=== PATIENT | male | born 1945 | race Caucasian/White ===

== ENCOUNTER → 2016-07-02 | Outpatient (CLI) | payer MEDICARE ==
[2016-06-29 08:24] VITALS: BP 139/73
[~2016-07-02] MED LIST: ALBU0.63 NEB; ALBU18HF IH; ALBU2.5V5 NEB; ALBU8.5H3 IH; ASCO500C PO; CALC600T11 PO; CICL12.5 NS; CYCL10TA2 PO; DICL100T PO; DILT120C97 PO; DOCU-27 PO; FLUT1DIS3 IH; IPRA3AMP NEB; LEVO500T38 PO; LISI-334 PO; METH4TAB2 PO; NAPR220C4 PO; PRAV40TA2 PO; PRED-220 PO; PRED2.5T PO; SULF1TAB24 PO; TRAM-29 PO; ZOLP10TA PO; [UNRECOGNIZED DRUG - CODE] PO
--- NOTE | 2016-07-02 15:35 | RAD ---
Indication open wound. The patient has a new open wound on the medial aspect of the left upper tibia, below the knee. The patient reports prior infection associated with the bones of the left leg. Note is made of a bone scan 05/18/2016 and the accompanying report. The open wound was identified and cleansed. A small feeding tube was introduced into the wound and the wound was probed. Contrast was injected. Imaging was obtained in 2 planes. 3 Cine loops were generated. No long fistulous tunnel or tract is seen. Beyond the wound pocket visible to the platinum eye there is no longer tract seen. No communication with the joint is seen. Fluoroscopy time associated with the examination was 0.7 minutes. IMPRESSION: Open wound anterior proximal tibia. No long tract or communication with the joint seen
== END | disposition home or self-care (01) ==
LOC: RAD 13:20
PROVIDERS: ATTEND Preventive Medicine Undersea and Hyperbaric Medicine
DX: S81.002A Unspecified open wound, left knee, initial encounter (principal); X58.XXXA Exposure to other specified factors, initial encounter; Y93.89 Activity, other specified; Y92.89 Other specified places as the place of occurrence of the external cause; Y99.8 Other external cause status
CPT/HCPCS: 76080

== ENCOUNTER 2017-03-12 10:03 | Inpatient (IN) | payer MEDICARE ==
[~2017-03-12] VITALS: Ht 175.3 cm; Wt 80.0 kg
[~2017-03-12 10:03] MED LIST changes: -ALBU8.5H3 IH; +ALBU8.5H8 IH; -CALC600T11 PO; +CALC600T23 PO; -CICL12.5 NS; +CICL12.52 NS; +CYCL-331 PO; -CYCL10TA2 PO; +DILT120C80 PO; -DILT120C97 PO; +DOCU-109 PO; -DOCU-27 PO; -LEVO500T38 PO; +LEVO500T59 PO; -TRAM-29 PO; +TRAM-48 PO
[2017-03-12 10:15] VITALS: BP 181/83
[2017-03-12] MEDS ORDERED: methylPREDNISolone SOD SUCC PF 125 MG/2 ML VIAL. IV SCH ×2 (10:15→10:30)
[2017-03-12 10:28] VITALS: BP 181/83
[2017-03-12 10:40] LABS: BASO # 0.1 x10^3/uL (0.0-0.2); BASO % 1 % (0-3); EOS # 0.1 x10^3/uL (0.0-0.7); EOS % 2 % (0-3); HEMATOCRIT 38.6 % (39.0-53.0); HEMOGLOBIN 13.2 g/dL (13.0-17.5); LYMPH # 0.3 x10^3/uL (1.0-4.8); LYMPH % 4 % (24-48); MEAN CORPUSCULAR HEMOGLOBIN 31 pg (25-35); MEAN CORPUSCULAR HGB CONC 34 g/dL (31-37); MEAN CORPUSCULAR VOLUME 90 fL (79-100); MONO # 0.9 x10^3/uL (0.0-1.1); MONO % 12 % (0-9); NEUT # 5.9 x10^3uL (1.8-7.7); NEUT % 81 % (31-73); PLATELET COUNT 326 x10^3/uL (140-400); RED CELL DISTRIBUTION WIDTH 15.2 % (11.5-14.5); WHITE BLOOD COUNT 7.3 x10^3/uL (4.0-11.0)
[2017-03-12 10:52] LABS: ALBUMIN/GLOBULIN RATIO 1.1 (1.0-1.7); CALCIUM 9.3 mg/dL (8.5-10.1); CREATININE 1.3 mg/dL (0.7-1.3); GFR 54.4; POTASSIUM 4.1 mmol/L (3.5-5.1); TOTAL BILIRUBIN 0.5 mg/dL (0.2-1.0); TOTAL PROTEIN 7.7 g/dL (6.4-8.2)
[2017-03-12 11:09] LABS: INFLUENZA A PATIENT NEGATIVE (NEGATIVE)
[2017-03-12 11:10] LABS: INFLUENZA B PATIENT NEGATIVE (NEGATIVE)
--- NOTE | 2017-03-12 11:24 | RAD ---
Chest, 2 views, 03/12/2017: History: Cough, congestion, shortness of breath Comparison is made to a study from 05/16/2016. The heart size is normal. There is calcific plaquing and tortuosity of the thoracic aorta. There is flattening of the hemidiaphragms compatible with hyperexpansion due to COPD. There are scattered parenchymal scars. No acute infiltrate is seen. There is no evidence of pleural fluid. Moderate spurring is present in the spine. IMPRESSION: 1. Emphysema with parenchymal scarring. 2. No acute abnormality is detected.
[2017-03-12 11:34] LABS: BGAS PH 7.46 (7.35-7.46)
[2017-03-12] MEDS ORDERED: IPRATRPIUM/ALBUTEROL 0.5/2.5MG 3 ML NEBU. NEB SCH (12:00)
[2017-03-12] MEDS: IPRATRPIUM/ALBUTEROL 0.5/2.5MG 3 ML NEBU. NEB SCH ×5 (13:00→21:29)
[2017-03-12] MEDS ORDERED: ALBUTEROL SULFATE 8GM INHALER. IH SCH (13:00)
[2017-03-12 14:53] VITALS: BP 163/79
[2017-03-12] MEDS: methylPREDNISolone SOD SUCC PF 40 MG/ML VIAL. IV SCH ×2 (16:38→21:05)
[2017-03-12 20:28] VITALS: BP 186/88
[2017-03-12] MEDS ORDERED: DICLOFENAC SODIUM 75 MG TABLET.DR PO SCH (21:00)
[2017-03-12] MEDS: LACTOBACILLUS RHAMNOSUS GG 1 CAPSULE. PO SCH (21:01)
[2017-03-12] MEDS: PRAVASTATIN 20 MG TABLET. PO SCH (21:01)
[2017-03-12] MEDS: DOXYCYCLINE HYCLATE 100 MG TABLET PO SCH (21:01)
[2017-03-12] MEDS: IBUPROFEN 600 MG TABLET. PO SCH (21:03)
[2017-03-12] MEDS: DICLOFENAC SODIUM 75 MG TABLET.DR PO SCH (21:04)
[2017-03-12] MEDS: PRENATAL MULTIVITAMIN TABLET. PO SCH (21:04)
--- NOTE | 2017-03-13 01:47 | HP ---
ADMIT DATE: 03/12/2017 HISTORY OF PRESENT ILLNESS: A 72-year-old male. The patient direct admit today with increased shortness of breath over the last 2-3 days, increasingly difficulty breathing, having cold chills ____ as well as a fever. The patient basically is septic. He denies chest pain, but does have marked shortness of breath. The patient was admitted to the hospital for further evaluation and treatment. PAST MEDICAL HISTORY: Coronary artery disease, hypercholesterolemia, hypertension, COPD, bronchitis, pneumonia. He has had gastroesophageal reflux, osteoarthritis, Orthopedic Surgery ____. SOCIAL HISTORY: The patient does smoke. He has been encouraged to stop smoking numerous times and has received counseling there. FAMILY HISTORY: Positive for cardiovascular disease. ALLERGIES: TO PENICILLIN. HOME MEDICATIONS: Include that of ProAir inhaler, vitamin C, calcium carbonate, Voltaren XR, Tiazac, DuoNeb treatments 4 times a day, lisinopril 20 mg a day, pravastatin 40 mg a day. REVIEW OF SYSTEMS: The patient denies any headaches, ____ blurred vision or double vision. Does have shortness of breath and does have coughing, wheezing as well as fever and chills. PHYSICAL EXAMINATION: GENERAL: This is a pleasant white male, moderate amount of distress. VITAL SIGNS: Blood pressure 163/80, respiratory rate 20, pulse 104, temperature 101 degrees, oxygen saturation fairly at 90% on room air. The patient otherwise has an ill-appearing white male in no apparent distress. HEENT: The patient's head was atraumatic, normocephalic. Eyes: PERRLA without jaundice. Mouth and throat were normal. NECK: Supple, without JVD, carotid bruits. No thyromegaly. LUNGS: Diminished throughout, poor movement of air with expiratory and inspiratory wheezes and just decreased breath sounds throughout completely. CARDIOVASCULAR: Tachycardic. ABDOMEN: Protuberant, soft, nontender, no rebound or guarding. Positive bowel sounds, no hepatosplenomegaly noted. EXTREMITIES: No clubbing, cyanosis, or edema. NEUROLOGIC: The patient was alert and oriented x 3. LABORATORY DATA: CBC basically stable. Chemistries all within normal range. BUN and creatinine 15 and 1.3. Blood gas 7.46, pO2 was low at 63 with a pCO2 of 37. The patient's influenza screen was negative. IMPRESSION: Acute exacerbation of chronic obstructive pulmonary disease, acute respiratory failure, sepsis, and emphysema. PLAN: The patient will be placed on IV antibiotic therapy, aggressive pulmonary toilet, steroids, and make further assessment on those instances as indicated. FRANCISCO FIELDS MD DR: MADYSON/leno JOB#: [id number] / [id number]
[2017-03-13] MEDS ORDERED: DICL75TA PO (02:17)
[2017-03-13] MEDS: IPRATRPIUM/ALBUTEROL 0.5/2.5MG 3 ML NEBU. NEB SCH ×4 (06:00→20:21)
[2017-03-13] MEDS: methylPREDNISolone SOD SUCC PF 40 MG/ML VIAL. IV SCH ×3 (06:01→21:32)
[2017-03-13 06:32] LABS: BASO % 1 % (0-3); EOS % 0 % (0-3); HEMATOCRIT 40.5 % (39.0-53.0); HEMOGLOBIN 13.6 g/dL (13.0-17.5); LYMPH # 0.3 x10^3/uL (1.0-4.8); LYMPH % 8 % (24-48); MEAN CORPUSCULAR HEMOGLOBIN 31 pg (25-35); MEAN CORPUSCULAR HGB CONC 34 g/dL (31-37); MEAN CORPUSCULAR VOLUME 91 fL (79-100); MONO # 0.1 x10^3/uL (0.0-1.1); MONO % 4 % (0-9); NEUT # 3.1 x10^3uL (1.8-7.7); NEUT % 88 % (31-73); PLATELET COUNT 299 x10^3/uL (140-400); RED BLOOD COUNT 4.46 x10^6/uL (4.30-5.70); RED CELL DISTRIBUTION WIDTH 15.3 % (11.5-14.5); WHITE BLOOD COUNT 3.6 x10^3/uL (4.0-11.0)
[2017-03-13 06:41] LABS: CALCIUM 9.3 mg/dL (8.5-10.1); CREATININE 1.2 mg/dL (0.7-1.3); GFR 59.7; POTASSIUM 4.6 mmol/L (3.5-5.1)
[2017-03-13 07:55] VITALS: BP 186/86
[2017-03-13] MEDS: ASPIRIN 325 MG TABLET PO SCH (08:48)
[2017-03-13] MEDS: LACTOBACILLUS RHAMNOSUS GG 1 CAPSULE. PO SCH ×2 (08:49→21:32)
[2017-03-13] MEDS: PRENATAL MULTIVITAMIN TABLET. PO SCH ×2 (08:50→21:31)
[2017-03-13] MEDS: DOXYCYCLINE HYCLATE 100 MG TABLET PO SCH ×2 (08:50→21:31)
[2017-03-13] MEDS: LISINOPRIL 20 MG TABLET PO SCH (08:51)
[2017-03-13] MEDS: DICLOFENAC SODIUM 75 MG TABLET.DR PO SCH ×2 (08:51→21:38)
[2017-03-13] MEDS: IBUPROFEN 600 MG TABLET. PO SCH ×2 (08:52→21:32)
[2017-03-13] MEDS ORDERED: predniSONE 5 MG TABLET PO SCH (09:00)
[2017-03-13 11:17] VITALS: BP 140/72
[2017-03-13 15:35] VITALS: BP 122/66
[2017-03-13 19:55] VITALS: BP 137/67
[2017-03-13] MEDS: PRAVASTATIN 20 MG TABLET. PO SCH (21:30)
[2017-03-13 23:44] VITALS: BP 145/67
[2017-03-14 05:52] VITALS: BP 147/70
[2017-03-14] MEDS: IPRATRPIUM/ALBUTEROL 0.5/2.5MG 3 ML NEBU. NEB SCH ×2 (05:52→09:48)
[2017-03-14] MEDS: methylPREDNISolone SOD SUCC PF 40 MG/ML VIAL. IV SCH (06:03)
[2017-03-14] MEDS: DICLOFENAC SODIUM 75 MG TABLET.DR PO SCH (09:30)
[2017-03-14] MEDS: DOXYCYCLINE HYCLATE 100 MG TABLET PO SCH (09:30)
[2017-03-14] MEDS: ASPIRIN 325 MG TABLET PO SCH (09:30)
[2017-03-14] MEDS: PRENATAL MULTIVITAMIN TABLET. PO SCH (09:30)
[2017-03-14] MEDS: LACTOBACILLUS RHAMNOSUS GG 1 CAPSULE. PO SCH (09:30)
[2017-03-14] MEDS: IBUPROFEN 600 MG TABLET. PO SCH (09:31)
[2017-03-14] MEDS: LISINOPRIL 20 MG TABLET PO SCH (09:31)
[2017-03-14 11:17] VITALS: BP 174/75
[2017-03-14] MEDS ORDERED: PRED-220 PO (12:00)
[2017-03-14] MEDS ORDERED: DOXY100T PO (12:00)
[2017-03-14] MEDS ORDERED: IPRA3AMP NEB (12:00)
--- NOTE | 2017-03-15 01:34 | DS ---
DATE OF DISCHARGE: 03/14/2017 HOSPITAL COURSE: A 72-year-old gentleman admitted with acute respiratory failure. The patient was in dire needs of acute respiratory effect when his oxygen saturations were dropping down into the 80s on room air. He was using accessory muscles ____ temperature up to 101.1. Respiratory rates were also elevated to 24, pulse in the 100s. The patient made good progress with IV antibiotic therapy and ____ were not conclusive, but there is no doubt he had some type of a respiratory infection as well as acute exacerbation of COPD, acute respiratory failure. In any case, the patient made good progress during the rest of his hospitalization. He was discharged home and then will be followed up as an outpatient. See MRAD, decreased activity, wear oxygen as an outpatient. His oxygen saturation dropped into the low 80s with a 6-minute walk with exertion. FRANCISCO FIELDS MD DR: MADYSON/leno JOB#: [id number] / [id number]
== END 2017-03-14 13:24 | disposition home or self-care (01) | DRG 871 ==
LOC: 1 SOUTH 10:03
PROVIDERS: ADMIT Family Medicine; ATTEND Family Medicine
DX: A41.9 Sepsis, unspecified organism (principal); J96.00 Acute respiratory failure, unspecified whether with hypoxia or hypercapnia; J44.1 Chronic obstructive pulmonary disease with (acute) exacerbation; E78.00 Pure hypercholesterolemia, unspecified; F17.200 Nicotine dependence, unspecified, uncomplicated; I10 Essential (primary) hypertension; I25.10 Atherosclerotic heart disease of native coronary artery without angina pectoris; M19.90 Unspecified osteoarthritis, unspecified site; J98.8 Other specified respiratory disorders; K21.9 Gastro-esophageal reflux disease without esophagitis; Z82.49 Family history of ischemic heart disease and other diseases of the circulatory system; Z87.01 Personal history of pneumonia (recurrent); Z88.0 Allergy status to penicillin
CPT/HCPCS: 36415; 36600; 71020; 80048; 80053; 82803; 85025; 87070; 87205; 87804; 94620; 94640; 94760; 99406; J2920; J7620

== ENCOUNTER 2018-05-25 13:25 | Inpatient (IN) | payer MEDICARE ==
[~2018-05-25] VITALS: Ht 177.8 cm; Wt 87.7 kg
[~2018-05-25 13:25] MED LIST changes: -ALBU18HF IH; +ALBU2.5V8 IH; -ALBU8.5H8 IH; +DICL75TA PO; -DILT120C80 PO; +DILT120C85 PO; +DOXY100T PO; -IPRA3AMP NEB; +IPRA3AMP29 NEB
[2018-05-25 14:21] VITALS: BP 113/64
[2018-05-25] MEDS ORDERED: ONDANSETRON PF 4 MG/2 ML VIAL. IV PRN (14:45)
[2018-05-25 14:59] LABS: BASO # 0.1 x10^3/uL (0.0-0.2); BASO % 1 % (0-3); EOS # 0.1 x10^3/uL (0.0-0.7); EOS % 1 % (0-3); HEMATOCRIT 35.2 % (39.0-53.0); HEMOGLOBIN 11.7 g/dL (13.0-17.5); LYMPH # 0.6 x10^3/uL (1.0-4.8); LYMPH % 5 % (24-48); MEAN CORPUSCULAR HEMOGLOBIN 30 pg (25-35); MEAN CORPUSCULAR HGB CONC 33 g/dL (31-37); MEAN CORPUSCULAR VOLUME 90 fL (79-100); MONO # 0.4 x10^3/uL (0.0-1.1); MONO % 3 % (0-9); NEUT # 11.8 x10^3uL (1.8-7.7); NEUT % 91 % (31-73); PLATELET COUNT 425 x10^3/uL (140-400); RED BLOOD COUNT 3.92 x10^6/uL (4.30-5.70); RED CELL DISTRIBUTION WIDTH 16.6 % (11.5-14.5); WHITE BLOOD COUNT 12.9 x10^3/uL (4.0-11.0)
[2018-05-25] MEDS: NICOTINE 21MG PATCH. TD SCH (15:00)
[2018-05-25 15:07] LABS: ALBUMIN 3.6 g/dL (3.4-5.0); ALBUMIN/GLOBULIN RATIO 1.3 (1.0-1.7); CALCIUM 9.6 mg/dL (8.5-10.1); CREATININE 1.2 mg/dL (0.7-1.3); GFR 59.5; POTASSIUM 4.6 mmol/L (3.5-5.1); TOTAL BILIRUBIN 0.5 mg/dL (0.2-1.0); TOTAL PROTEIN 6.4 g/dL (6.4-8.2)
[2018-05-25] MEDS ORDERED: VANCOMYCIN PER PHARMACY MC PRN (17:15)
[2018-05-25] MEDS ORDERED: IOHEXOL 350 MG/ML 100 ML VIAL. IV ONE (17:45)
[2018-05-25] MEDS ORDERED: VANCOMYCIN 2 GM in IV NORMAL SALINE 500ML 500 ML IV ONE (18:00)
[2018-05-25 19:40] VITALS: BP 126/65
[2018-05-25] MEDS ORDERED: IPRATRPIUM/ALBUTEROL 0.5/2.5MG 3 ML NEBU. NEB SCH ×2 (20:00→21:00)
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
[2018-05-25] MEDS ORDERED: IPRATRPIUM/ALBUTEROL 0.5/2.5MG 3 ML NEBU. ONE (20:37)
[2018-05-25] MEDS ORDERED: DOCUSATE SODIUM 100 MG CAPSULE PO PRN (20:45)
[2018-05-25] MEDS ORDERED: ALBUTEROL SULFATE 2.5 MG/3 ML NEBU. IH SCH (21:00)
[2018-05-25] MEDS: IPRATRPIUM/ALBUTEROL 0.5/2.5MG 3 ML NEBU. NEB SCH (21:00)
[2018-05-25] MEDS: LACTOBACILLUS RHAMNOSUS GG 1 CAPSULE. PO SCH (21:39)
[2018-05-25] MEDS: DICLOFENAC SODIUM 25 MG TABLET.DR PO SCH (21:40)
[2018-05-26] VITALS (7 sets, daily range): BP systolic 113–155; BP diastolic 62–80
[2018-05-26] MEDS: IPRATRPIUM/ALBUTEROL 0.5/2.5MG 3 ML NEBU. NEB SCH ×3 (05:01→20:37)
[2018-05-26] MEDS: VANCOMYCIN 1.25 GM in IV NORMAL SALINE 250ML 250 ML IV SCH ×2 (05:06→17:31)
[2018-05-26 06:43] LABS: BASO # 0.1 x10^3/uL (0.0-0.2); BASO % 1 % (0-3); EOS # 0.3 x10^3/uL (0.0-0.7); EOS % 4 % (0-3); HEMATOCRIT 34.9 % (39.0-53.0); HEMOGLOBIN 11.5 g/dL (13.0-17.5); LYMPH # 0.9 x10^3/uL (1.0-4.8); LYMPH % 12 % (24-48); MEAN CORPUSCULAR HEMOGLOBIN 30 pg (25-35); MEAN CORPUSCULAR HGB CONC 33 g/dL (31-37); MEAN CORPUSCULAR VOLUME 91 fL (79-100); MONO # 0.6 x10^3/uL (0.0-1.1); MONO % 8 % (0-9); NEUT # 5.8 x10^3uL (1.8-7.7); NEUT % 76 % (31-73); PLATELET COUNT 385 x10^3/uL (140-400); RED BLOOD COUNT 3.86 x10^6/uL (4.30-5.70); RED CELL DISTRIBUTION WIDTH 16.9 % (11.5-14.5); WHITE BLOOD COUNT 7.7 x10^3/uL (4.0-11.0)
[2018-05-26 06:52] LABS: CALCIUM 9.2 mg/dL (8.5-10.1); CREATININE 1.1 mg/dL (0.7-1.3); GFR 65.8; POTASSIUM 3.7 mmol/L (3.5-5.1)
[2018-05-26] MEDS: LACTOBACILLUS RHAMNOSUS GG 1 CAPSULE. PO SCH ×2 (07:45→21:09)
[2018-05-26] MEDS: IBUPROFEN 600 MG TABLET. PO PRN ×2 (07:45→21:09)
[2018-05-26] MEDS: CALCIUM CARB/VIT D3 500/200 TABLET PO SCH (07:45)
[2018-05-26] MEDS: predniSONE 10 MG TABLET PO SCH (07:45)
[2018-05-26] MEDS: LISINOPRIL 20 MG TABLET PO SCH (07:46)
[2018-05-26] MEDS: DICLOFENAC SODIUM 25 MG TABLET.DR PO SCH ×2 (07:50→21:10)
[2018-05-26] MEDS: NICOTINE 21MG PATCH. TD SCH (07:50)
[2018-05-26] MEDS ORDERED: PRAVASTATIN 20 MG TABLET. PO SCH (09:00)
[2018-05-26] MEDS ORDERED: CALCIUM CARBONATE 500 MG TABLET PO SCH (09:00)
[2018-05-26] MEDS ORDERED: IPRATRPIUM/ALBUTEROL 0.5/2.5MG 3 ML NEBU. NEB SCH (11:30)
--- NOTE | 2018-05-26 15:41 | RAD ---
EXAM: Limited bone scintigraphy. HISTORY: Left leg pain. Nonhealing wound along left knee. COMPARISON: 05/25/2018. FINDINGS: 25 mCi technetium 99m MDP was administered intravenously. Scintigraphic images of both knees were obtained after a delay in multiple projections. Increased uptake traverses the left proximal tibial metaphysis in an oblique linear fashion, corresponding with a chronic fracture line noted on prior studies. Uptake along the medial compartment of the left kidney corresponds with osteoarthritis. Diffuse uptake throughout the right knee joint line is consistent with advanced osteoarthritis. IMPRESSION: 1. Uptake traversing the left proximal tibial metaphysis suggests incomplete healing or a developing stress lesion at the site of the previous fracture. 2. Findings consistent with severe knee osteoarthritis on the right greater than left. Electronically signed by: Preet Miles MD (05/26/2018 3:38 PM) [id number]
[2018-05-26] MEDS ORDERED: ASCORBIC ACID 500 MG TABLET PO SCH (21:00)
--- NOTE | 2018-05-26 23:54 | PN ---
DATE: SUBJECTIVE: A 73-year-old male in with cellulitis to his left knee and left lower leg, open wound there, which he has had for some time; however, chemistries came back and showed an elevated lactate going up from 2.6 up to 3.5. With that increased, the patient will continue on IV antibiotic therapy and we will get a bone scan of that lower left leg, as he has had chronic infection in there for years, but in any case, he is being packed here. We will continue to be monitored, says he feels somewhat better. OBJECTIVE: VITAL SIGNS: Blood pressure 140/70, respiratory rate 20, pulse 73, afebrile. GENERAL: The patient is alert and oriented x 3. Speech is fluent and appropriate. Cranial nerves 2-12 grossly intact. LUNGS: Diminished throughout, but basically clear. CARDIOVASCULAR: Regular sinus rhythm. ABDOMEN: Soft, nontender. EXTREMITIES: Left lower leg less swollen, less inflammation, open wound approximately 2 cm x 0.8 cm over the proximal tibia. Open wound needing to be packed with iodoform and Betadine. We will continue on IV antibiotic therapy and will await results of the bone scan to determine further therapy on this individual. FRANCISCO FIELDS MD DR: MADYSON/leno JOB#: [id number] / [id number]
[2018-05-27] MEDS: IPRATRPIUM/ALBUTEROL 0.5/2.5MG 3 ML NEBU. NEB SCH ×2 (05:00→09:43)
[2018-05-27 05:15] VITALS: BP 116/63
[2018-05-27 06:31] LABS: BASO # 0.1 x10^3/uL (0.0-0.2); BASO % 1 % (0-3); EOS # 0.3 x10^3/uL (0.0-0.7); EOS % 4 % (0-3); HEMATOCRIT 34.1 % (39.0-53.0); HEMOGLOBIN 11.4 g/dL (13.0-17.5); LYMPH # 0.8 x10^3/uL (1.0-4.8); LYMPH % 11 % (24-48); MEAN CORPUSCULAR HEMOGLOBIN 30 pg (25-35); MEAN CORPUSCULAR HGB CONC 34 g/dL (31-37); MEAN CORPUSCULAR VOLUME 90 fL (79-100); MONO # 0.7 x10^3/uL (0.0-1.1); MONO % 10 % (0-9); NEUT # 5.5 x10^3uL (1.8-7.7); NEUT % 74 % (31-73); PLATELET COUNT 364 x10^3/uL (140-400); RED BLOOD COUNT 3.79 x10^6/uL (4.30-5.70); RED CELL DISTRIBUTION WIDTH 16.3 % (11.5-14.5); WHITE BLOOD COUNT 7.5 x10^3/uL (4.0-11.0)
[2018-05-27 06:40] LABS: ALBUMIN 3.2 g/dL (3.4-5.0); ALBUMIN/GLOBULIN RATIO 1.2 (1.0-1.7); CREATININE 1.1 mg/dL (0.7-1.3); GFR 65.8; POTASSIUM 3.7 mmol/L (3.5-5.1); TOTAL BILIRUBIN 0.6 mg/dL (0.2-1.0); TOTAL PROTEIN 5.9 g/dL (6.4-8.2)
[2018-05-27] MEDS: VANCOMYCIN 1.25 GM in IV NORMAL SALINE 250ML 250 ML IV SCH (07:06)
[2018-05-27] MEDS: predniSONE 10 MG TABLET PO SCH (08:26)
[2018-05-27] MEDS: LACTOBACILLUS RHAMNOSUS GG 1 CAPSULE. PO SCH (08:26)
[2018-05-27] MEDS: CALCIUM CARB/VIT D3 500/200 TABLET PO SCH (08:27)
[2018-05-27] MEDS: LISINOPRIL 20 MG TABLET PO SCH (08:27)
[2018-05-27] MEDS: NICOTINE 21MG PATCH. TD SCH (08:27)
[2018-05-27] MEDS: DICLOFENAC SODIUM 25 MG TABLET.DR PO SCH (08:30)
[2018-05-27 09:14] LABS: VANC TR 15.8 mcg/mL (10.0-20.0)
[2018-05-27 11:00] VITALS: BP 105/61
[2018-05-27] MEDS ORDERED: LEVO500T59 PO (11:02)
[2018-05-27] MEDS ORDERED: levoFLOXacin 750 MG TABLET PO SCH (21:00)
--- NOTE | 2018-06-02 11:32 | DS ---
DATE OF DISCHARGE: 05/27/2018 HOSPITAL COURSE: A 73-year-old gentleman. The patient came in with cellulitis to the left lower leg. The patient had it for some time, although there is more infection noted. Lactic acid was elevated. The patient has had multiple injuries to that left lower leg and this one area does seem to heal. He has been through multiple orthopedic physicians for evaluation of it as noted. The patient's lactic acid did go as high as 3.5, and the left knee wound grew out a composite of multiple organisms including Staph aureus, it was sensitive and Enterococcus faecalis. The patient made a good progress with the IV antibiotic therapy. He was placed on oral antibiotics. A bone scan was performed, and it demonstrated incomplete healing of a developing stress lesion at the site of the previous fracture consistent with severe left knee osteoarthritis. A CT scan of the lower extremity left showed no osteo, however, diffuse cellulitis without soft tissue abscess. In any case, the patient made good progress during the rest of his hospitalization. He was discharged to home. IMPRESSION: 1. Cellulitis to left lower leg, unresponsive to oral antibiotics as an outpatient. 2. Anemia of chronic disease. 3. Mild protein malnutrition. The patient will be discharged home and followed up as an outpatient. Continue oral antibiotics as indicated. He will be on a heart healthy diet, decreased activity, and follow up in 7-10 days for followup or sooner as needed. FRANCISCO FIELDS MD DR: MADYSON/leno JOB#: [id number] / [id number]
== END 2018-05-27 11:14 | disposition home or self-care (01) | DRG 603 ==
LOC: ICU 13:53
PROVIDERS: ADMIT Family Medicine; ATTEND Family Medicine
DX: L03.116 Cellulitis of left lower limb (principal); E44.1 Mild protein-calorie malnutrition; R65.10 Systemic inflammatory response syndrome (SIRS) of non-infectious origin without acute organ dysfunction; R79.89 Other specified abnormal findings of blood chemistry; I10 Essential (primary) hypertension; E78.5 Hyperlipidemia, unspecified; I87.2 Venous insufficiency (chronic) (peripheral); J44.9 Chronic obstructive pulmonary disease, unspecified; F17.210 Nicotine dependence, cigarettes, uncomplicated; Z88.0 Allergy status to penicillin; M17.12 Unilateral primary osteoarthritis, left knee; D63.8 Anemia in other chronic diseases classified elsewhere
CPT/HCPCS: 36415; 73701; 78300; 80048; 80053; 80202; 83605; 85025; 85651; 87040; 87070; 87186; 87641; 94640; A9503; J1956; J3370; J7040; J7050; J7512; J7620; Q9967

== ENCOUNTER 2018-06-26 12:23 | Inpatient (IN) | payer MEDICARE ==
[~2018-06-26] VITALS: Ht 177.8 cm; Wt 84.1 kg
--- NOTE | 2018-06-26 12:42 | PHYS DOC ---
Past History Past Medical History: Arthritis, COPD, High Cholesterol, Hypertension Past Surgical History: Other Alcohol Use: None Drug Use: Marijuana Adult General Chief Complaint Chief Complaint: SHORTNESS OF BREATH HPI HPI Patient is a 73-year-old male who presents with shortness of breath. This has been getting worse for the past 2 days. Patient has a history of COPD and this feels like a flareup of that. No fever. Cough has decreased during this time. Increased shortness of breath with exertion. No new leg swelling. No new orthopnea. No chest pain[] Review of Systems Review of Systems Constitutional: Denies fever or chills [] Eyes: Denies change in visual acuity, redness, or eye pain [] HENT: Denies nasal congestion or sore throat [] Respiratory: See history of present illness[] Cardiovascular: No chest pain or palpitations[] GI: Denies abdominal pain, nausea, vomiting, bloody stools or diarrhea [] : Denies dysuria or hematuria [] Musculoskeletal: Denies back pain or joint pain [] Integument: Denies rash or skin lesions [] Neurologic: Denies headache, focal weakness or sensory changes [] Endocrine: Denies polyuria or polydipsia [] All other systems were reviewed and found to be within normal limits, except as documented in this note. Allergies Allergies Allergies Coded Allergies Type Severity Reaction Last Updated Verified Penicillins Allergy Intermediate 04/08/16 Yes Physical Exam Physical Exam Constitutional: Well developed, well nourished, mild distress, pursed lip breathing, non-toxic appearance. [] HENT: Normocephalic, atraumatic, bilateral external ears normal, oropharynx moist, no oral exudates, nose normal. [] Eyes: PERRLA, EOMI, conjunctiva normal, no discharge. [] Neck: Normal range of motion, no tenderness, supple, no stridor. [] Cardiovascular:Heart rate regular rhythm, no murmur [] Lungs & Thorax: Bilateral breath sounds clear to auscultation [] Abdomen: Bowel sounds normal, soft, no tenderness, no masses, no pulsatile masses. [] Skin: Warm, dry, no erythema, no rash. [] Back: No tenderness, no CVA tenderness. [] Extremities: No tenderness, no cyanosis, no clubbing, ROM intact, no edema. [] Neurologic: Alert and oriented X 3, normal motor function, normal sensory function, no focal deficits noted. [] Psychologic: Affect normal, judgement normal, mood normal. [] EKG EKG EKG shows a sinus rhythm at 96 bpm, normal axis, QTC 433 ms, no ST elevations, interpreted by me at 1252[] Radiology/Procedures Radiology/Procedures AP chest. HISTORY: Short of breath, COPD. AP view was taken of the chest. There is marked arthritis in both shoulders. Heart is upper normal in size without heart failure. The aorta is tortuous. There is pleural thickening or a small effusion on the right. There is focal atelectasis or scarring along the left heart border. There are no other confluent infiltrates. IMPRESSION: 1. Scarring or atelectasis along the left heart border. 2. No other acute infiltrates. 3. Mild pleural thickening or small effusion on the right.[] Course & Med Decision Making Course & Med Decision Making Pertinent Labs and Imaging studies reviewed. (See chart for details) [] Dragon Disclaimer Dragon Disclaimer This electronic medical record was generated, in whole or in part, using a voice recognition dictation system. Departure Departure: Referrals: FRANCISCO FIELDS MD (PCP) JOSEF FUNG DO Jun 26, 2018 12:42
[2018-06-26] MEDS ORDERED: IPRATRPIUM/ALBUTEROL 0.5/2.5MG 3 ML NEBU. NEB ONE (12:45)
[2018-06-26 12:55] LABS: BASO % 1 % (0-3); EOS # 0.1 x10^3/uL (0.0-0.7); EOS % 2 % (0-3); HEMATOCRIT 36.4 % (39.0-53.0); HEMOGLOBIN 11.9 g/dL (13.0-17.5); LYMPH # 0.4 x10^3/uL (1.0-4.8); LYMPH % 7 % (24-48); MEAN CORPUSCULAR HEMOGLOBIN 29 pg (25-35); MEAN CORPUSCULAR HGB CONC 33 g/dL (31-37); MEAN CORPUSCULAR VOLUME 89 fL (79-100); MONO # 0.6 x10^3/uL (0.0-1.1); MONO % 8 % (0-9); NEUT # 5.6 x10^3uL (1.8-7.7); NEUT % 83 % (31-73); PLATELET COUNT 388 x10^3/uL (140-400); RED BLOOD COUNT 4.08 x10^6/uL (4.30-5.70); RED CELL DISTRIBUTION WIDTH 15.8 % (11.5-14.5); WHITE BLOOD COUNT 6.8 x10^3/uL (4.0-11.0)
[2018-06-26 13:13] LABS: ALBUMIN 3.8 g/dL (3.4-5.0); ALBUMIN/GLOBULIN RATIO 1.1 (1.0-1.7); CALCIUM 9.4 mg/dL (8.5-10.1); GFR 73.5; POTASSIUM 3.9 mmol/L (3.5-5.1); TOTAL BILIRUBIN 0.6 mg/dL (0.2-1.0); TOTAL PROTEIN 7.4 g/dL (6.4-8.2)
--- NOTE | 2018-06-26 13:27 | RAD ---
AP chest. HISTORY: Short of breath, COPD. AP view was taken of the chest. There is marked arthritis in both shoulders. Heart is upper normal in size without heart failure. The aorta is tortuous. There is pleural thickening or a small effusion on the right. There is focal atelectasis or scarring along the left heart border. There are no other confluent infiltrates. IMPRESSION: 1. Scarring or atelectasis along the left heart border. 2. No other acute infiltrates. 3. Mild pleural thickening or small effusion on the right. Electronically signed by: Roby Wright MD (06/26/2018 1:24 PM) [facility]
[2018-06-26] MEDS ORDERED: methylPREDNISolone SOD SUCC PF 125 MG/2 ML VIAL. IV ONE (13:30)
[2018-06-26] MEDS ORDERED: ALBUTEROL SULFATE 2.5 MG/3 ML NEBU. CONT NEB ONE (13:45)
[2018-06-26] MEDS ORDERED: ONDANSETRON PF 4 MG/2 ML VIAL. IV PRN (15:45)
[2018-06-26] MEDS ORDERED: ACETAMINOPHEN 325 MG TABLET PO PRN (15:45)
[2018-06-26] MEDS ORDERED: IPRATRPIUM/ALBUTEROL 0.5/2.5MG 3 ML NEBU. NEB SCH (16:00)
[2018-06-26] MEDS ORDERED: SMZ/TMP 800/160MG TABLET. PO ONE (16:00)
--- NOTE | 2018-06-26 16:25 | NUR ---
Admit to room 113 via cart accompanied by staff. Alert and oriented, vs stable, no c/o pain. Oriented to room and explained all procedures.
[2018-06-26 16:35] VITALS: BP 163/88
[2018-06-26] MEDS ORDERED: PRED-220 PO (18:04)
[2018-06-26 19:43] VITALS: BP 124/79
[2018-06-26] MEDS: predniSONE 10 MG TABLET PO SCH (20:28)
[2018-06-26] MEDS: ATORVASTATIN CALCIUM 10 MG TABLET. PO SCH (20:28)
[2018-06-26] MEDS: IPRATRPIUM/ALBUTEROL 0.5/2.5MG 3 ML NEBU. NEB SCH (20:44)
[2018-06-26] MEDS ORDERED: ALBUTEROL SULFATE 2.5 MG/3 ML NEBU. IH SCH (21:00)
[2018-06-26] MEDS ORDERED: MULT1TAB52 PO (21:45)
[2018-06-26] MEDS ORDERED: ASPI325T11 PO (21:45)
[2018-06-26] MEDS ORDERED: IBUP400T18 PO (21:45)
[2018-06-26] MEDS ORDERED: FLUT1DIS3 IH (21:45)
--- NOTE | 2018-06-26 21:45 | NUR ---
Patient concerned that not all of his home medication were not ordered. Current home medication list copied and placed on chart/updated in computer. Diclofenac held per Dr. Meléndez and Patient wonders why. Call to Dr. Meléndez's number placed several times with no answer. Patient aware.
[2018-06-26 22:27] VITALS: BP 112/74
[2018-06-27] MEDS: IPRATRPIUM/ALBUTEROL 0.5/2.5MG 3 ML NEBU. NEB SCH ×4 (04:54→20:34)
[2018-06-27 05:36] VITALS: BP 168/83
[2018-06-27] MEDS: predniSONE 10 MG TABLET PO SCH (09:10)
[2018-06-27] MEDS: LISINOPRIL 20 MG TABLET PO SCH (09:10)
[2018-06-27] MEDS: HYDROcodone/APAP 5/325MG 1 TAB TABLET PO PRN ×2 (10:35→18:35)
--- NOTE | 2018-06-27 11:08 | EKG ---
[address] [address] Test Date: 2018-06-26 Test Time: 12:52:53 Pat Name: PHILLIP THOMAS Department: Room: 113 A Gender: M Tool/Die Maker: : [id number] Requested By: JOSEF FUNG Order Number: [id number] Reading MD: Julio C Dickson Measurements Intervals [place] Rate: 96 P: 38 DE: 198 QRS: 52 QRSD: 110 T: 34 QT: 342 QTc: 433 Interpretive Statements SINUS RHYTHM Electronically Signed On 07-05-2018 12:40:13 CDT by Julio C Dickson
[2018-06-27 11:22] VITALS: BP 169/84
[2018-06-27] MEDS: methylPREDNISolone SOD SUCC PF 40 MG/ML VIAL. IV SCH ×2 (14:12→21:14)
[2018-06-27 15:59] VITALS: BP 153/81
[2018-06-27 19:35] VITALS: BP 142/72
[2018-06-27] MEDS: ATORVASTATIN CALCIUM 10 MG TABLET. PO SCH (21:14)
[2018-06-27] MEDS: LACTOBACILLUS RHAMNOSUS GG 1 CAPSULE. PO SCH (21:14)
--- NOTE | 2018-06-27 21:50 | PN ---
DATE: 06/27/2018 SUBJECTIVE: The patient with acute exacerbation of COPD with acute bronchitis, hypoxia. He is resting a little bit more comfortably today. The patient is breathing somewhat better. He has been given IV steroids and aggressive pulmonary toilet. OBJECTIVE: VITAL SIGNS: Blood pressure 169/80, respiratory rate 20, pulse 104, afebrile. LUNGS: The patient's lungs are diminished, poor movement of air, rhonchi noted throughout, but markedly improved from where they were yesterday. He is moving air much better. Oxygen saturation is 95% on 2. ABDOMEN: Soft and nontender. EXTREMITIES: No clubbing, cyanosis, or edema. NEUROLOGIC: Alert and oriented. PLAN: Continue with aggressive pulmonary situation and make further evaluation on him with steroids and aggressive pulmonary treatment. FRANCISCO FIELDS MD DR: MADYSON/leno JOB#: [id number] / [id number]
[2018-06-27] MEDS ORDERED: NICOTINE 21MG PATCH. TD PRN (22:00)
[2018-06-28 00:30] VITALS: BP 132/70
[2018-06-28] MEDS: HYDROcodone/APAP 5/325MG 1 TAB TABLET PO PRN ×4 (00:34→20:39)
[2018-06-28] MEDS: IPRATRPIUM/ALBUTEROL 0.5/2.5MG 3 ML NEBU. NEB SCH ×4 (04:55→20:42)
[2018-06-28 05:00] VITALS: BP 160/58
[2018-06-28] MEDS: LACTOBACILLUS RHAMNOSUS GG 1 CAPSULE. PO SCH ×2 (08:58→20:39)
[2018-06-28] MEDS: LISINOPRIL 20 MG TABLET PO SCH (08:59)
[2018-06-28] MEDS: methylPREDNISolone SOD SUCC PF 40 MG/ML VIAL. IV SCH ×2 (08:59→20:39)
[2018-06-28 10:41] VITALS: BP 132/69
--- NOTE | 2018-06-28 16:00 | PN ---
DATE: SUBJECTIVE: The patient with acute exacerbation of chronic obstructive pulmonary disease with respiratory failure, hypoxia. The patient has made some improvements as he is feeling somewhat better. Blood pressure 160/58, respiration 18, pulse 81, afebrile. He is still on 2 liters at 94%. Recall, he was down in the 80s when he first came in with any exertion and respiratory rate of 33. In any case, the patient is making fairly good progress. The patient's chest x-ray the other day demonstrated scarring and atelectasis. The patient be tapered down on Solu-Medrol and make further evaluation on him as indicated. IMPRESSION: Acute exacerbation of chronic obstructive pulmonary disease with hypoxia. PLAN: As above, continue taper down on Solu-Medrol and hopefully ready for discharge in the a.m. FRANCISCO FIELDS MD DR: MADYSON/leno JOB#: [id number] / [id number]
[2018-06-28 16:32] VITALS: BP 140/75
[2018-06-28 19:56] VITALS: BP 126/74
[2018-06-28] MEDS: ATORVASTATIN CALCIUM 10 MG TABLET. PO SCH (20:39)
[2018-06-28] MEDS ORDERED: DOCUSATE SODIUM 100 MG CAPSULE PO PRN (20:45)
[2018-06-28 23:00] VITALS: BP 143/76
[2018-06-29] MEDS: IPRATRPIUM/ALBUTEROL 0.5/2.5MG 3 ML NEBU. NEB SCH ×2 (05:31→09:46)
[2018-06-29 06:04] VITALS: BP 157/77
[2018-06-29] MEDS: HYDROcodone/APAP 5/325MG 1 TAB TABLET PO PRN (06:37)
[2018-06-29] MEDS: methylPREDNISolone SOD SUCC PF 40 MG/ML VIAL. IV SCH (08:24)
[2018-06-29] MEDS: LACTOBACILLUS RHAMNOSUS GG 1 CAPSULE. PO SCH (08:25)
[2018-06-29 08:26] VITALS: BP 157/77
[2018-06-29] MEDS: LISINOPRIL 20 MG TABLET PO SCH (08:26)
[2018-06-29] MEDS ORDERED: PRED-220 PO (08:57)
--- NOTE | 2018-06-29 09:12 | NUR ---
Wound Care Wound care consult for L knee wound. Pt is well known to WC team, he has chronic surgical wound to left knee from artificial bone implant. Cleansed area, packed with Aquacel Ag rope, covered with gauze and Kerlix and secured with Tubigrip. No other wounds noted on full skin inspection. WC will continue to follow for possible changes.
--- NOTE | 2018-06-29 10:45 | NUR ---
Discharge Note: PHILLIP GALO [address] Discharge instructions and discharge home medications reviewed with patient and son and a copy given. All questions have been answered and understanding verbalized. The following instructions and handouts were given: medications, follow up instructions, prescriptions and educational handouts given. Discontinued lines and drains: peripheral IV removed with no complications. Patient discharged to home with son via private vehicle.
--- NOTE | 2018-07-06 09:29 | DS ---
DATE OF DISCHARGE: 06/29/2018 HOSPITAL COURSE: For acute exacerbation of COPD. The patient was brought in. He has been using his nebulizer at home, got progressively worse and he used accessory muscles to breathe and could not make much movement at home. As a result of this, the patient was admitted to the hospital for further evaluation. He was placed on IV Solu-Medrol, aggressive pulmonary toilet with nebulizers every 6 hours and then the patient made excellent progress during the rest of his hospitalization. Chest x-ray was unremarkable. Labs except for some chronic anemia was basically unremarkable. The patient made good progress during the rest of his hospitalization and there were no complications. The patient was discharged home. See MRAD. He will be on a heart healthy diet. He has hypercholesterolemia. IMPRESSION: Acute exacerbation of chronic obstructive pulmonary disease with hypoxia, acute respiratory failure with hypoxemia, anemia of chronic disease. PLAN: The patient will be discharged home. See MRAD and follow up accordingly. FRANCISCO FIELDS MD DR: MADYSON/leno JOB#: [id number] / [id number]
--- NOTE | 2018-07-06 09:32 | HP ---
ADMIT DATE: 06/26/2018 HISTORY OF PRESENT ILLNESS: The patient admitted 06/26/2018 for shortness of breath. For the past 2 days, this young man had problems with coughing and shortness of breath with minimal exertion, unable to catch his air. He has tried outpatient therapy. He has his own nebulizer and unable to gain his air, As a result of this, the patient came into the Emergency Room. The patient was found to be in exacerbation of COPD and we admitted him to the hospital for further evaluation and treatment. The pulse was elevated to almost 100 and the patient required breathing treatments as he was using accessory muscles to breathe and having difficulty there. The patient was admitted for IV Solu-Medrol, aggressive pulmonary toilet monitoring obviously. PAST MEDICAL HISTORY: Coronary artery disease, hypercholesterolemia, hypertension, COPD, bronchitis, pneumonia, oxygen dependent; gastroesophageal reflux, dialysis at times, musculoskeletal disorder, arthritis, rheumatoid arthritis, osteoarthritis, orthopedic surgery of the left wrist, left leg. He has had multiple rods and screws placed, joint replacement, left hip and anemia. IMMUNIZATIONS: Tetanus and influenza, pneumococcal are up to date. FAMILY HISTORY: Mother had hepatitis B, father had heart failure and COPD and heart disease. ALLERGIES: PENICILLIN. MEDICATIONS: Reconciliation of meds was performed in the usual fashion and they are duly noted in the chart including his DuoNeb treatments, albuterol, pravastatin 40, diltiazem 300, lisinopril 20, calcium carbonate, fluticasone, prednisone, and vitamins. SOCIAL HISTORY: The patient used to be a smoker, had a previous history about 40 pack years, given that up fortuitously and he also uses some marijuana now and then to help him feel better. The patient otherwise denies any other abdominal pain. REVIEW OF SYSTEMS Denies headaches, visual changes, blurred vision, double vision. Denies abdominal pain. Does have shortness of breath. Denies chest pain. Denies melena, hematochezia, hematemesis and neurologically intact. PHYSICAL EXAMINATION: GENERAL: This is a very pleasant white male in moderate amount of distress using accessory muscles. VITAL SIGNS: Blood pressure is that of 130/70, respiratory rate 33, pulse 99, temperature ____ on 2 liters. He is using accessory muscles to breathe. HEENT: The patient's head was atraumatic, normocephalic. Eyes: PERRLA without jaundice. Mouth and throat were normal. NECK: Supple, without JVD, carotid bruits, or thyromegaly. LUNGS: Diminished, poor movement of air, using accessory muscles, inspiratory and expiratory wheezes and rhonchi. CARDIOVASCULAR: Regular sinus rhythm, except for tachy. ABDOMEN: Soft, nontender, no rebounding or guarding. Positive bowel sounds, no hepatosplenomegaly was noted. EXTREMITIES: Without clubbing, cyanosis, or edema. NEUROLOGIC: The patient was alert and oriented x 3. The patient will be admitted for further evaluation and treatment of his exacerbation of COPD and make further assessment as indicated for those results. The chest x-ray itself did not show anything in particular except for old scarring, but that is to be expected. IMPRESSION: Acute respiratory distress with hypoxia and acute exacerbation of chronic obstructive pulmonary disease with hypoxia, anemia of chronic disease. FRANCISCO FIELDS MD DR: MADYSON/leno JOB#: [id number] / [id number]
== END 2018-06-29 10:48 | disposition home or self-care (01) | DRG 190 ==
LOC: ER 12:23 → 1 SOUTH 16:03
PROVIDERS: ADMIT Family Medicine; ATTEND Family Medicine
DX: J44.1 Chronic obstructive pulmonary disease with (acute) exacerbation (principal); J96.91 Respiratory failure, unspecified with hypoxia; R65.10 Systemic inflammatory response syndrome (SIRS) of non-infectious origin without acute organ dysfunction; J44.0 Chronic obstructive pulmonary disease with (acute) lower respiratory infection; J20.9 Acute bronchitis, unspecified; M19.90 Unspecified osteoarthritis, unspecified site; E78.00 Pure hypercholesterolemia, unspecified; I10 Essential (primary) hypertension; Z88.0 Allergy status to penicillin; Z79.899 Other long term (current) drug therapy
CPT/HCPCS: 36415; 71045; 80053; 83880; 84484; 85025; 93005; 94640; 94760; 96374; J0696; J2920; J2930; J7512; J7613; J7620; 99285-25

== ENCOUNTER 2019-10-19 12:04 | Inpatient (IN) | payer MEDICARE ==
[~2019-10-19] VITALS: Ht 177.8 cm; Wt 82.3 kg
[~2019-10-19 12:04] MED LIST changes: +ASPI325T11 PO; -DILT120C85 PO; +DILT120C99 PO; +IBUP400T18 PO; +MULT-445 PO
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
[2019-10-19 12:37] LABS: BASO # 0.1 x10^3/uL (0.0-0.2); BASO % 1 % (0-3); EOS # 0.1 x10^3/uL (0.0-0.7); EOS % 1 % (0-3); HEMATOCRIT 37.4 % (39.0-53.0); HEMOGLOBIN 12.3 g/dL (13.0-17.5); LYMPH # 0.7 x10^3/uL (1.0-4.8); LYMPH % 6 % (24-48); MEAN CORPUSCULAR HEMOGLOBIN 30 pg (25-35); MEAN CORPUSCULAR HGB CONC 33 g/dL (31-37); MEAN CORPUSCULAR VOLUME 91 fL (79-100); MONO # 0.2 x10^3/uL (0.0-1.1); MONO % 2 % (0-9); NEUT # 10.3 x10^3uL (1.8-7.7); NEUT % 91 % (31-73); PLATELET COUNT 451 x10^3/uL (140-400); RED BLOOD COUNT 4.11 x10^6/uL (4.30-5.70); RED CELL DISTRIBUTION WIDTH 15.4 % (11.5-14.5); WHITE BLOOD COUNT 11.3 x10^3/uL (4.0-11.0)
[2019-10-19 12:51] LABS: ANION GAP 10 (6-14); BLOOD UREA NITROGEN 16 mg/dL (8-26); BUN/CREATININE RATIO 12 (6-20); CALCIUM 9.8 mg/dL (8.5-10.1); CARBON DIOXIDE 28 mmol/L (21-32); CHLORIDE 100 mmol/L (98-107); CREATININE 1.3 mg/dL (0.7-1.3); GFR 54.1; GLUCOSE 108 mg/dL (70-99); POTASSIUM 3.9 mmol/L (3.5-5.1); SODIUM 138 mmol/L (136-145)
[2019-10-19 12:57] LABS: ALBUMIN 4.1 g/dL (3.4-5.0); ALBUMIN/GLOBULIN RATIO 1.2 (1.0-1.7); ALK PHOS 109 U/L (46-116); ALT (SGPT) 32 U/L (16-63); AST (SGOT) 21 U/L (15-37); TOTAL BILIRUBIN 0.5 mg/dL (0.2-1.0); TOTAL PROTEIN 7.5 g/dL (6.4-8.2)
[2019-10-19 12:59] LABS: C REACTIVE PROTEIN < 0.5 mg/L (0-3.3)
[2019-10-19] MEDS ORDERED: ceFAZolin SODIUM 2 GM in IV DEXTROSE 5% 50 ML IV ONE (13:00)
--- NOTE | 2019-10-19 13:00 | RAD ---
Left tibia-fibula 2 views INDICATION: Left lower extremity infection, osteomyelitis COMPARISON: 05/26/2018 bone scan and 05/25/[address] FINDINGS: Proximal fibula and tibial fractures as well as a distal femoral fracture are again identified with surgical hardware fixation of the femoral and tibial fractures. The hardware appears intact and there is no periprosthetic lucency suggesting loosening. The fracture line through the proximal tibial metaphysis remains visible and appears irregular with marginal sclerosis. No new fracture or permeative osteolysis is evident. Soft tissues show similar fatty atrophy of the calf muscles. IMPRESSION: Delayed union of the proximal tibial metaphyseal fracture status post ORIF with medial and lateral plate fixation plates with screws. No permeative osteolytic lesions suspicious for osteomyelitis although that diagnosis is not necessarily excluded by radiographic appearance alone. Continued follow-up suggested. Electronically signed by: Jessica Tillman MD (10/19/2019 12:57 PM) [id number]
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
[2019-10-19 14:02] VITALS: BP 145/59
[2019-10-19] MEDS ORDERED: ALBU2.5V8 INH (16:04)
[2019-10-19] MEDS ORDERED: IBUP-571 PO (16:04)
[2019-10-19] MEDS ORDERED: DOCU100C28 PO (16:04)
[2019-10-19] MEDS ORDERED: CYCL-331 PO (16:04)
[2019-10-19] MEDS ORDERED: DIPH25TA26 PO (16:04)
[2019-10-19] MEDS ORDERED: IPRA3AMP29 NEB (16:04)
[2019-10-19 16:17] VITALS: BP 132/66
--- NOTE | 2019-10-19 16:30 | NUR ---
Wound Care Wound Type/Assessment: Patient has a chronic wound to the left knee, the wound was cleaned, measured, and assessed. patients wound has exposed bone and what looks like hardware exposed, the wound was repacked with iodoform gauze packing with a foam dressing over. the kristian-wound is reddened. the patient also has a small skin tear to the left lateral lower leg the area was cleaned, measured, pictured and redressed with Xeroform gauze with a foam dressing. Treatment Recommendations/Plan: Recommendations of the left knee- cleanse the wound then pack with iodoform gauze in the deeper areas and place iodoform gauze over the areas that have no depth then place gauze and tape or a foam dressing and change daily. Recommendation to the left lateral lower leg- cleanse the wound then place Xeroform gauze over with a foam dressing, change every 2-3 days. Notified RN about the POC and wound care will continue to f/u for changes.
[2019-10-19] MEDS ORDERED: ALBUTEROL SULFATE 2.5 MG/3 ML NEBU. ONE (17:17)
[2019-10-19] MEDS ORDERED: BUDESONIDE 0.5 MG/2 ML NEBU ONE (17:17)
[2019-10-19 19:01] VITALS: BP 124/73
[2019-10-19] MEDS ORDERED: IBUPROFEN 600 MG TABLET. PO PRN (19:45)
[2019-10-19] MEDS: ACETAMINOPHEN 325 MG TABLET PO PRN (20:39)
[2019-10-19] MEDS: ASCORBIC ACID 500 MG TABLET PO SCH (20:39)
[2019-10-19] MEDS: DICLOFENAC SODIUM 25 MG TABLET.DR PO SCH (20:40)
[2019-10-19] MEDS: BUDESONIDE 0.5 MG/2 ML NEBU NEB SCH (20:45)
[2019-10-19] MEDS: ALBUTEROL SULFATE 2.5 MG/3 ML NEBU. NEB SCH (20:45)
[2019-10-19] MEDS ORDERED: NON FORMULARY ITEM (Fluticasone/Salmeterol (Advair 250-50 Diskus) 1 PUFF) IH SCH (21:00)
[2019-10-19] MEDS ORDERED: predniSONE 10 MG TABLET PO SCH (21:00)
[2019-10-19 22:13] VITALS: BP 151/75
[2019-10-20] MEDS: ALBUTEROL SULFATE 2.5 MG/3 ML NEBU. NEB SCH ×4 (04:51→20:12)
[2019-10-20] MEDS: ACETAMINOPHEN 325 MG TABLET PO PRN ×2 (05:05→17:56)
[2019-10-20 05:55] VITALS: BP 159/66
[2019-10-20 06:54] LABS: BASO # 0.1 x10^3/uL (0.0-0.2); BASO % 1 % (0-3); EOS # 0.4 x10^3/uL (0.0-0.7); EOS % 5 % (0-3); HEMATOCRIT 33.3 % (39.0-53.0); HEMOGLOBIN 10.8 g/dL (13.0-17.5); LYMPH # 1.2 x10^3/uL (1.0-4.8); LYMPH % 16 % (24-48); MEAN CORPUSCULAR HEMOGLOBIN 30 pg (25-35); MEAN CORPUSCULAR HGB CONC 33 g/dL (31-37); MEAN CORPUSCULAR VOLUME 91 fL (79-100); MONO # 0.8 x10^3/uL (0.0-1.1); MONO % 10 % (0-9); NEUT # 5.3 x10^3uL (1.8-7.7); NEUT % 68 % (31-73); PLATELET COUNT 399 x10^3/uL (140-400); RED BLOOD COUNT 3.68 x10^6/uL (4.30-5.70); RED CELL DISTRIBUTION WIDTH 15.2 % (11.5-14.5); WHITE BLOOD COUNT 7.7 x10^3/uL (4.0-11.0)
[2019-10-20 06:57] LABS: CALCIUM 8.8 mg/dL (8.5-10.1); CREATININE 1.1 mg/dL (0.7-1.3); GFR 65.6; POTASSIUM 3.4 mmol/L (3.5-5.1)
[2019-10-20] MEDS: predniSONE 5 MG TABLET PO SCH (08:45)
[2019-10-20] MEDS: ASCORBIC ACID 500 MG TABLET PO SCH ×2 (08:45→20:34)
[2019-10-20] MEDS: ASPIRIN ENTERIC COATED 325 MG TABLET.DR. PO SCH (08:45)
[2019-10-20] MEDS: ATORVASTATIN CALCIUM 10 MG TABLET. PO SCH (08:45)
[2019-10-20] MEDS: LISINOPRIL 20 MG TABLET PO SCH (08:45)
[2019-10-20] MEDS: MULTIVITAMIN with MINERAL TABLET. PO SCH (08:46)
[2019-10-20] MEDS: DOCUSATE SODIUM 100 MG CAPSULE PO SCH (08:46)
[2019-10-20] MEDS: DICLOFENAC SODIUM 25 MG TABLET.DR PO SCH ×2 (08:47→20:34)
[2019-10-20 10:55] VITALS: BP 154/76
[2019-10-20] MEDS: BUDESONIDE 0.5 MG/2 ML NEBU NEB SCH ×2 (11:16→20:12)
[2019-10-20 14:32] VITALS: BP 154/68
--- NOTE | 2019-10-20 16:13 | NUR ---
Order Verified Yes Consent signed Yes Previous PICC placement Yes Past Medical/Surgical history and current diagnosis reviewed Yes Patient Medical /Surgical History Related to PICC line placement None Special considerations for PICC line placement None PICC placement indication superintendent terminal antibiotic usage, Name of PICC Nurse Nisreen Simon RN
--- NOTE | 2019-10-20 16:14 | NUR ---
Procedure: Following complete explanation of the PICC procedure including the indications, risks, and potential complications, informed consent was obtained. The possibility for infection was discussed along with signs, symptoms, and prevention. All the patient's questions were answered. IV Device Protocol was used. Written and verbal patient education was provided. Hand hygiene performed. Standardized central line checklist was utilized. The patient was placed in the supine position, the right arm was prepped with chlorhexidine and patient draped with maximum sterile barrier. 1 mL 1% lidocaine was infiltrated into the skin to provide local anesthesia. A thorough assessment of the right upper extremity completed. Using real-time ultrasound guidance and standardized micro puncture set, the basilic vein was punctured and a peel away sheath was placed using the modified Seldinger technique. A tip location device was used to ensure adequate catheter placement. The catheter was secured using a securement device and an antimicrobial patch was applied directly on the insertion site followed by a transparent dressing. The purple port withdrew blood and flushed without resistance. Patient tolerated the procedure without apparent complication. A single Lumen Power PICC placement successful and uncomplicated. Placement verified by EKG tip confirmation system. Tip located in the low svc per 3cg, green p wave and ekg observed. Complications:
--- NOTE | 2019-10-20 17:56 | NUR ---
PRN Tylenol 650mg given per order for pain. Patient rates pain 7/10 back and legs.
[2019-10-20 19:45] VITALS: BP 164/72
[2019-10-20] MEDS: LACTOBACILLUS RHAMNOSUS GG 1 CAPSULE. PO SCH (20:33)
[2019-10-20] MEDS ORDERED: MELA3TAB4 PO (20:40)
--- NOTE | 2019-10-20 20:44 | HP ---
ADMIT DATE: 10/19/2019 HISTORY OF PRESENT ILLNESS: A 74-year-old gentleman with a left lower leg wound that had been draining, grew out Staph aureus. The patient has been on oral medications, but failed that in the past. The patient has a chronic infection to this lower leg. It is becoming increasingly worse and was seen by home health and noted that the wound was getting worse, specifically osteomyelitis. The patient came in through the Emergency Room. He was admitted for further evaluation and treatment, and the patient was placed on IV Ancef for this infection until further cultures are returned. PAST MEDICAL HISTORY: Includes congestive heart failure, coronary artery disease, COPD, bronchitis, pneumonia, GERD, dialysis, arthritis, rheumatoid arthritis, osteoarthritis, osteomyelitis, joint replacement, left hip fractures, diabetes, anemia. IMMUNIZATIONS: Tetanus and influenza up-to-date. FAMILY HISTORY: Mother had hepatitis B. Father of heart failure, COPD and cardiovascular problems. ALLERGIES: PENICILLINS. The patient tolerates cephalosporins okay. HOME MEDICATIONS: Diphenhydramine, DuoNeb treatments, albuterol, cyclobenzaprine, pravastatin, diltiazem, lisinopril 20, aspirin, diclofenac, ibuprofen 600, calcium carbonate, fluticasone. SOCIAL HISTORY: The patient has about a [id number] history of smoking, although has quit. alcohol use. The patient is a full code. REVIEW OF SYSTEMS: The patient notes he has been having some chilling and lightheadedness. Otherwise, he denies chest pain, shortness of breath no more than usual. ABDOMEN: The patient's abdomen is soft. The patient's pain in the lower leg is minimal, but that is because he has diabetes and he has peripheral neuropathy there. PHYSICAL EXAMINATION: GENERAL: This is a pleasant white male, in moderate amount of discomfort. VITAL SIGNS: Blood pressure 155/70, respiratory rate 16, pulse 90, temperature 98.4. HEENT: The patient's head was atraumatic, normocephalic. Eyes: PERRLA without jaundice. Mouth and throat were normal. NECK: Supple. No thyromegaly. LUNGS: Diminished throughout, but clear. CARDIOVASCULAR: Regular sinus rhythm. ABDOMEN: Soft, nontender. EXTREMITIES: The patient has a brace on his right lower leg. The left leg shows a pus like drainage discharged through the proximal tibia with 2 wounds there where screws were. He has lost so much weight, the patient has had the screws coming through. Otherwise, pulses noted distally. NEUROLOGIC: Intact, alert. Speech fluent, spontaneous, and appropriate. LABORATORY DATA: The patient's x-ray showed degenerative arthritis. We will do a bone scan later on. The patient's sodium 139, potassium 3.4, BUN and creatinine 16 and 1.1. White count slightly elevated at 11.3, hemoglobin 12 and 37. IMPRESSION: The patient otherwise will be admitted for further evaluation of osteomyelitis and cellulitis of the left lower leg from previous surgery, degenerative arthritis, chronic obstructive pulmonary disease, anemia of chronic disease. PLAN: As above. Continue to monitor the patient on IV antibiotic therapy, get him set up for possible outpatient or inpatient IV antibiotic therapy. FRANCISCO FIELDS MD DR: MADYSON/leno JOB#: [id number] / [id number]
[2019-10-20] MEDS ORDERED: MELATONIN 3 MG TABLET PO SCH (21:00)
[2019-10-21 05:56] VITALS: BP 158/80
[2019-10-21] MEDS: ALBUTEROL SULFATE 2.5 MG/3 ML NEBU. NEB SCH ×2 (05:56→11:18)
[2019-10-21 05:57] LABS: BASO # 0.1 x10^3/uL (0.0-0.2); BASO % 1 % (0-3); EOS # 0.5 x10^3/uL (0.0-0.7); EOS % 6 % (0-3); HEMATOCRIT 32.3 % (39.0-53.0); HEMOGLOBIN 10.8 g/dL (13.0-17.5); LYMPH % 13 % (24-48); MEAN CORPUSCULAR HEMOGLOBIN 30 pg (25-35); MEAN CORPUSCULAR HGB CONC 33 g/dL (31-37); MEAN CORPUSCULAR VOLUME 91 fL (79-100); MONO # 0.7 x10^3/uL (0.0-1.1); MONO % 8 % (0-9); NEUT # 5.8 x10^3uL (1.8-7.7); NEUT % 72 % (31-73); PLATELET COUNT 365 x10^3/uL (140-400); RED BLOOD COUNT 3.57 x10^6/uL (4.30-5.70); RED CELL DISTRIBUTION WIDTH 15.1 % (11.5-14.5)
[2019-10-21 06:02] LABS: CALCIUM 8.8 mg/dL (8.5-10.1); GFR 73.2; POTASSIUM 3.4 mmol/L (3.5-5.1)
[2019-10-21] MEDS ORDERED: LACT1CAP19 PO (08:30)
[2019-10-21] MEDS ORDERED: CEFA1VIA2 IJ (08:30)
--- NOTE | 2019-10-21 08:34 | DISCH ---
HOME HEALTH DISCHARGE/MEDS DISCHARGE INFORMATION: Discharge Date: Oct 21, 2019 Final Diagnosis: Problems Medical Problems: (1) Full code status Status: Acute (2) Osteomyelitis Status: Acute Condition on Discharge: Stable CODE STATUS: Code Status: Full HOME HEALTH: Face to Face: I certify this patient is under my care and that I, or a nurse practitioner or physician's cook's assistant working with me, had a face to face encounter that meets the physician face to face encounter requirements with this patient on [Date]. Medical Condition(s): Other (cellulitis left leg/osteomylistis) Shelter For: Admin/Educate Injections, Assess Cardiopulm Status, Assess & Educate Safety, Assess/Skilled Observatio, IV Infusion Therapy, Medication Management, Pain Management, Wound Care Homebound Status Met By: Unsteady balance w/ amb,, Limited distance walking POST DISCHARGE ORDERS: Activity Instructions for Disc: Activity as tolerated Weight Bearing Status after Di: No restrictions Wound/Incision Care: Change dressing, Other, see below (wound care attached to discharge paperwork) TREATMENT/EQUIPMENT ORDERS: Infusion Equipment, home use: PICC Line CERTIFICATION STATEMENT: Certification Statement: Based on the above finding, I certify that this patient is confined to the home and needs intermittent mcfp care, physical therapy and/or speech therapy, or continues to need occupational therapy.~ This patient is under my care, and I have initiated the establishment of the plan of care.~ This patient will be followed by myself or a community physician who will periodically review the plan of care. DISCHARGE MEDICATIONS: Home Meds Active Scripts Prednisone (PREDNISONE) 10 Mg Tablet, 5 MG PO DAILY for copd for 30 Days, #60 TAB Prov:FRANCISCO FIELDS MD 06/29/18 Reported Medications Melatonin (MELATONIN) 3 Mg Tablet, 3 MG PO HS for sleep, TAB 10/20/19 Ipratropium/Albuterol Sulfate (DUONEB 0.5-3(2.5) MG/3 ML) 3 Ml Ampul.neb, 3 ML NEB QID for SOA, EACH 10/19/19 Ibuprofen (Ibu) 600 Mg Tablet, 1 TAB PO Q6HRS PRN for PAIN 10/19/19 Docusate Sodium (DOCUSATE SODIUM) 100 Mg Capsule, 2 CAP PO DAILY for constipation for 30 Days, #60 CAP 0 Refills 8/5/20 Diphenhydramine Hcl (DIPHENHYDRAMINE HCL) 25 Mg Tablet, 1 TAB PO PRN BID PRN for ALLERGIES for 30 Days, TAB 0 Refills 10/19/19 Cyclobenzaprine Hcl (CYCLOBENZAPRINE HCL) 10 Mg Tablet, 1 TAB PO TID for muscle relaxant, #90 TAB 10/19/19 Albuterol Sulfate (PROVENTIL HFA INHALER) 6.7 Gm Hfa.aer.ad, 1 PUFF INH PRN Q4HRS PRN for FOR ASTHMA, INHALER 0 Refills 10/19/19 Fluticasone/Salmeterol (ADVAIR 250-50 DISKUS) 1 Each Disk.w.dev, 1 PUFF IH BID for SOA, #3 INHALER 3 Refills 06/26/18 Aspirin (ASPIRIN EC) 325 Mg Tablet.dr, 1 TAB PO DAILY for pain, #30 TAB 5 Refills 06/26/18 Diclofenac Sodium (DICLOFENAC SODIUM) 75 Mg Tablet.dr, 75 MG PO BID for PAIN, TAB 03/13/17 Lisinopril (LISINOPRIL) 20 Mg Tablet, 1 TAB PO DAILY for high blood pressure, #30 TAB 5 Refills last dose this morning next dose tomorrow 05/12/14 Pravastatin Sodium (PRAVASTATIN SODIUM) 40 Mg Tablet, 1 TAB PO DAILY for high cholesterol, #90 TAB 1 Refill last dose this morning next dose tomorrow 05/12/14 Diltiazem Hcl (TIAZAC) 300 Mg Capsule.er, 300 MG PO DAILY for blood pressure/heart rate last dose this morning next dose tomorrow 05/12/14 Calcium Carbonate (CALCIUM CARBONATE) 600 Mg Tablet, 600 MG PO DAILY for supplement last dose this morning next dose tomorrow 05/12/14 Ascorbic Acid (VITAMIN C) 500 Mg Capsule.er, 500 MG PO BID for supplement last dose this morning next dose tomorrow 05/12/14 Discontinued Reported Medications Albuterol Sulfate (PROAIR HFA INHALER) 8.5 Gm Hfa.aer.ad, 2 PUFF IH QID for short of breath, #1 INHALER may resume as needed 05/12/14 FRANCISCO FIELDS MD Oct 21, 2019 08:34
[2019-10-21] MEDS: predniSONE 5 MG TABLET PO SCH (08:58)
[2019-10-21] MEDS: ATORVASTATIN CALCIUM 10 MG TABLET. PO SCH (08:58)
[2019-10-21] MEDS: ASCORBIC ACID 500 MG TABLET PO SCH (08:58)
[2019-10-21] MEDS: ASPIRIN ENTERIC COATED 325 MG TABLET.DR. PO SCH (08:58)
[2019-10-21] MEDS: LISINOPRIL 20 MG TABLET PO SCH (08:58)
[2019-10-21] MEDS: MULTIVITAMIN with MINERAL TABLET. PO SCH (08:58)
[2019-10-21] MEDS: LACTOBACILLUS RHAMNOSUS GG 1 CAPSULE. PO SCH (08:58)
[2019-10-21] MEDS: DOCUSATE SODIUM 100 MG CAPSULE PO SCH (08:58)
[2019-10-21] MEDS: DICLOFENAC SODIUM 25 MG TABLET.DR PO SCH (09:02)
[2019-10-21 10:40] VITALS: BP 173/76
[2019-10-21] MEDS: BUDESONIDE 0.5 MG/2 ML NEBU NEB SCH (11:18)
--- NOTE | 2019-10-21 14:56 | RAD ---
Three-phase bone scan Clinical indications: Osteomyelitis of the left lower leg. History of fractures of the tibia and fibula and femur of the the left leg. COMPARISON: Radiographic study of the left tibia and fibula dated October 19, 2019. Comparison bone scan dated May 26, 2018. TECHNIQUE: After IV infusion of 25 mCi of technetium 99m MDP, three-phase bone scan of both knees and lower legs were performed. FINDINGS: No hyperemia is evident. Mild blood pool activity is seen involving the medial femoral condyle of the left knee. More prominent blood pool accumulation is seen involving lateral aspect of the proximal tibia. There is blood pool activity involving the lateral aspect of the distal femur and proximal tibia of the right knee. On delayed imaging, there is abnormal uptake involving the proximal left tibia most prominent in the region of blood pool activity mentioned previously. This corresponds to a nonhealed fracture seen on the radiographic study. In addition, there is activity involving the medial femoral condyle. There is joint space narrowing and subchondral sclerosis of the medial tibiofemoral joint compartment. There is less prominent degenerative activity involving the lateral femoral condyle related to degenerative joint space narrowing. This is also similar to previous bone scan May 26, 2018. On that scan, activity seen involving the medial aspect of the fracture site the proximal tibia. This activity is not seen today. On the delayed images, there is abnormal activity involving the lateral tibiofemoral joint compartment of the right knee corresponding to blood pool activity and to a lesser extent the medial tibiofemoral joint compartment of the right knee. These findings were seen previously. There is a new finding of mild activity seen involving the mid shaft left tibia.. Represents stress fracture distal to the metallic surgical plate distal screw. IMPRESSION: Nonhealed fracture involving the proximal left tibia. This involves the lateral portion of the fracture. The more medial portion of the fracture may be healed given the lack of bone scan activity here now. No osteolysis is seen on October 19, 2019 radiographic study. No hyperemia is evident. Therefore, infection appears less likely and the bone scan findings may be related to nonunion. There is new finding of a stress fracture of the midshaft of the left tibia. Chronic degenerative osteoarthritis of both knees. Electronically signed by: Darion Grubbs MD (10/21/2019 2:53 PM) [id number]
--- NOTE | 2019-10-21 15:24 | NUR ---
NSG NOTE; DISCHARGE HOME HEALTH ARRANGED BY ADRIANO WINN CM FOR CONT IV ANTIBIOTICS AND WOUND CARE. RX FOR PREDNISONE CALLED TO [facility] PER DR FIELDS'S REQUEST DISCHARGED TO HOME AT 1525 VIA W/C ACCOMP BY FRIEND WHO PICK HIM UP
== END 2019-10-21 15:25 | disposition home or self-care (01) | DRG 863 ==
LOC: ER 12:04 → 1 SOUTH 12:45
PROVIDERS: ADMIT Family Medicine; ATTEND Family Medicine
DX: T81.49XA Infection following a procedure, other surgical site, initial encounter (principal); L03.116 Cellulitis of left lower limb; M86.8X6 Other osteomyelitis, lower leg; E11.69 Type 2 diabetes mellitus with other specified complication; E11.42 Type 2 diabetes mellitus with diabetic polyneuropathy; Z96.642 Presence of left artificial hip joint; M06.9 Rheumatoid arthritis, unspecified; J44.9 Chronic obstructive pulmonary disease, unspecified; I50.9 Heart failure, unspecified; I11.0 Hypertensive heart disease with heart failure; M19.90 Unspecified osteoarthritis, unspecified site; K21.9 Gastro-esophageal reflux disease without esophagitis; E78.00 Pure hypercholesterolemia, unspecified; Y83.8 Other surgical procedures as the cause of abnormal reaction of the patient, or of later complication, without mention of misadventure at the time of the procedure; D63.8 Anemia in other chronic diseases classified elsewhere; I25.10 Atherosclerotic heart disease of native coronary artery without angina pectoris; F12.90 Cannabis use, unspecified, uncomplicated; Z87.01 Personal history of pneumonia (recurrent); Z87.891 Personal history of nicotine dependence; Z82.5 Family history of asthma and other chronic lower respiratory diseases; Z82.49 Family history of ischemic heart disease and other diseases of the circulatory system; Z83.1 Family history of other infectious and parasitic diseases; Z79.899 Other long term (current) drug therapy; Y92.89 Other specified places as the place of occurrence of the external cause
CPT/HCPCS: 36415; 36569; 73590; 78315; 80048; 80053; 82947; 85025; 86140; 87040; 94640; 96365; A9503; J0690; J7512; 99285-25; J7613

== ENCOUNTER 2019-11-16 11:12 | Emergency (ER) | payer MEDICARE ==
[~2019-11-16] VITALS: Ht 177.8 cm; Wt 82.3 kg
--- NOTE | 2019-11-16 12:02 | PHYS DOC ---
Past History Past Medical History: Anemia, Arthritis, Asthma, Bronchitis, CAD, COPD, GERD, High Cholesterol, Hypertension, Pneumonia Past Surgical History: Other Additional Past Surgical Histo: LEFT LEG, LEFT HIP, LEFT WRIST Alcohol Use: None Drug Use: Marijuana Adult General Chief Complaint Chief Complaint: DYSPNEA/RESPIRATOY DISTRESS HPI HPI Patient is a 74-year-old male who presents via POV for dyspnea. Patient has history of COPD and reports waking up this morning with productive cough and increased shortness of breath, though shortly resolved after coughing up more productive sputum than usual. Patient went about his usual daily routine, reports having a friend and family member, however with no apparent issues. Patient then contacted his daughter who is a medical professional, patient reports daughter was concerned about slurred speech but patient reports he did not have his teeth and during said conversation. Patient's family member came in thoroughly evaluated patient, she called patient's primary care physician regarding shortness of breath this morning and apparent concern for slurred speech and decision was made to seek emergent evaluation at our facility for both issues. On arrival today, patient has no main complaints. Denies any fever, COVID-19 contact, headache, syncope, fall or other trauma, chest pain, shortness of breath past baseline, no increased sputum purulence or production, abdominal pain, urinary symptom, gait abnormalities past baseline, motor or sensory function changes or focal neurologic deficits. Review of Systems Review of Systems Fourteen body systems of review of systems have been reviewed. See HPI for pertinent positives and negative responses, other pressley all other systems are negative, non-pertinent or non-contributory Allergies Allergies Allergies Coded Allergies Type Severity Reaction Last Updated Verified Penicillins Allergy Intermediate 04/08/16 Yes Physical Exam Physical Exam Constitutional: Well developed, well nourished, no acute distress, non-toxic appearance. HENT: Normocephalic, atraumatic, bilateral external ears normal, oropharynx moist, poor dentition, no oral exudates, nose normal. Eyes: PERRLA, EOMI, conjunctiva normal, no discharge. Neck: Normal range of motion, no tenderness, supple, no stridor. Cardiovascular: Heart rate regular, sinus rhythm, no murmurs rubs or gallops Lungs & Thorax: Bilateral breath sounds diminished bilaterally, mild rhonchi without any focal wheezes or rails, no respiratory distress Abdomen: Bowel sounds normal, soft, no tenderness, no masses, no pulsatile masses. Nonsurgical abdomen, no peritoneal signs Skin: Warm, dry, no erythema, no rash. Back: No tenderness, no CVA tenderness. Extremities: No tenderness, no cyanosis, no clubbing, ROM intact, no edema. picc present in right upper extremity, right knee in brace, reports focal tenderness to right hip which is a chronic arthritic issue per patient Neurologic: Alert and oriented X 3, cranial nerves II through XII intact, able to move upper and lower extremities freely without issue or focal deficits, 5/5 muscle strength noted to all extremities, sensory function intact to dull and light touch, patient able to ambulate from doorway with difficulty due to baseline arthritic changes but no obvious cranial/proprioception abnormalities noted, no focal deficits noted. Psychologic: Affect normal, judgement normal, mood normal. Current Patient Data Vital Signs Vital Signs Date Time Temp Pulse Resp B/P (MAP) Pulse Ox O2 Delivery O2 Flow Rate FiO2 11/16/19 11:20 98.3 105 24 127/70 (89) 99 Nasal Cannula 2.0 EKG EKG [] Radiology/Procedures Radiology/Procedures [] Course & Med Decision Making Course & Med Decision Making Patient seen and evaluated on immediate ER arrival ABCs grossly unremarkable Comprehensive history and physical exam obtained Discuss with patient diagnostic studies which could be ordered but given HPI and my comprehensive physical exam, I do not feel these are immediately indicated I do not feel patient meets criteria for acute exacerbation of COPD, I will defer decision for antibiotics and steroids to PCP Patient reports having good family support at home and access to PCP, reports being able to be seen in outpatient setting within 1 week time after ER departure, I feel this is appropriate Ultimately, asymptomatic patient without any obvious or concerning findings today discharged home in stable condition with strict follow-up precautions that were well understood, all questions and concerns addressed prior to ER departure [employer] Disclaimer Dragon Disclaimer This electronic medical record was generated, in whole or in part, using a voice recognition dictation system. Departure Departure: Impression: Primary Impression: COPD (chronic obstructive pulmonary disease) Disposition: 01 HOME/RESIDENCE PRIOR TO ADM Condition: STABLE Referrals: FRANCISCO FIELDS MD (PCP) Patient Instructions: Chronic Obstructive Pulmonary Disease, Pursed Lip Breathing, [id number], Stroke Prevention Justification of Admission: Justification of Admission: Justification of Admission Dx: N/A Cellulitis: Cellulitis ANALI MOURA 2, 2020 12:02
[2019-11-16 12:10] VITALS: BP 106/66
== END 2019-11-16 12:10 | disposition home or self-care (01) ==
LOC: ER 11:12
DX: J44.9 Chronic obstructive pulmonary disease, unspecified (principal); M19.90 Unspecified osteoarthritis, unspecified site; J45.909 Unspecified asthma, uncomplicated; I25.10 Atherosclerotic heart disease of native coronary artery without angina pectoris; K21.9 Gastro-esophageal reflux disease without esophagitis; E78.00 Pure hypercholesterolemia, unspecified; I10 Essential (primary) hypertension; Z86.2 Personal history of diseases of the blood and blood-forming organs and certain disorders involving the immune mechanism; Z88.0 Allergy status to penicillin
CPT/HCPCS: 96365; 96375; 99281

== ENCOUNTER 2019-11-16 14:08 | Inpatient (IN) | payer MEDICARE ==
[~2019-11-16] VITALS: Ht 177.8 cm; Wt 81.8 kg
[2019-11-16 15:00] VITALS: BP 94/61
--- NOTE | 2019-11-16 15:30 | NUR ---
PATIENT ARRIVED TO UNIT VIA W/C. PATIENTS VS OBTAINED AND ARE STBALE. PATIENT IS ORIENTED TO ROOM AND PROCEEDURES. PATIENT IS PLESANT AND COOPERATIVE WITH ASSESSMNET. PATIENT IS RESTING IN BED AT THIS TIME. WILL CONTINUE TO MONITOR.,
[2019-11-16] MEDS: IV NORMAL SALINE 1,000ML 1,000 ML IV SCH (16:58)
[2019-11-16] MEDS ORDERED: ALBUTEROL SULFATE 2.5 MG/3 ML NEBU. INH PRN (17:00)
[2019-11-16] MEDS ORDERED: CYCLOBENZAPRINE 10 MG TABLET. PO PRN (17:00)
[2019-11-16 17:52] LABS: BILIRUBIN,URINE NEG (NEG); CLARITY,URINE HAZY; COLOR,URINE STRAW; GLUCOSE,URINE NEG (NEG); NITRITE,URINE NEG (NEG); UROBILINOGEN,URINE 0.2 mg/dL (0.2 mg/dL)
[2019-11-16 17:53] LABS: BACTERIA,URINE FEW /HPF (0-FEW); RBC,URINE 20-40 /HPF (0-2); SQUAMOUS EPITHELIAL CELL,UR OCC /LPF
[2019-11-16 17:55] LABS: GRANULAR CASTS,URINE OCC /HPF
[2019-11-16 18:52] LABS: ALBUMIN 2.6 g/dL (3.4-5.0); ALBUMIN/GLOBULIN RATIO 0.7 (1.0-1.7); ALK PHOS 82 U/L (46-116); ALT (SGPT) < 6 U/L (16-63); ANION GAP 13 (6-14); AST (SGOT) 19 U/L (15-37); BLOOD UREA NITROGEN 118 mg/dL (8-26); BUN/CREATININE RATIO 22 (6-20); CALCIUM 10.2 mg/dL (8.5-10.1); CARBON DIOXIDE 23 mmol/L (21-32); CHLORIDE 99 mmol/L (98-107); CREATININE 5.3 mg/dL (0.7-1.3); GFR 10.7; GLUCOSE 89 mg/dL (70-99); POTASSIUM 3.8 mmol/L (3.5-5.1); SODIUM 135 mmol/L (136-145); TOTAL BILIRUBIN 0.3 mg/dL (0.2-1.0); TOTAL PROTEIN 6.4 g/dL (6.4-8.2)
[2019-11-16 19:47] VITALS: BP 125/80
[2019-11-16] MEDS: IPRATRPIUM/ALBUTEROL 0.5/2.5MG 3 ML NEBU. NEB SCH (20:15)
[2019-11-16] MEDS: BUDESONIDE 0.5 MG/2 ML NEBU NEB SCH (20:15)
[2019-11-16] MEDS ORDERED: NON FORMULARY ITEM (Fluticasone/Salmeterol (Advair 250-50 Diskus) 1 PUFF) IH SCH (21:00)
[2019-11-16 23:28] VITALS: BP 99/66
[2019-11-17] MEDS: IV NORMAL SALINE 1,000ML 1,000 ML IV SCH ×2 (01:33→12:00)
[2019-11-17 05:41] VITALS: BP 120/55
[2019-11-17] MEDS: IPRATRPIUM/ALBUTEROL 0.5/2.5MG 3 ML NEBU. NEB SCH ×2 (05:54→11:16)
[2019-11-17] MEDS: BUDESONIDE 0.5 MG/2 ML NEBU NEB SCH (05:55)
[2019-11-17 06:16] LABS: BASO # 0.1 x10^3/uL (0.0-0.2); BASO % 1 % (0-3); EOS # 0.2 x10^3/uL (0.0-0.7); EOS % 2 % (0-3); HEMATOCRIT 22.9 % (39.0-53.0); HEMOGLOBIN 7.4 g/dL (13.0-17.5); LYMPH # 0.7 x10^3/uL (1.0-4.8); LYMPH % 7 % (24-48); MEAN CORPUSCULAR HEMOGLOBIN 30 pg (25-35); MEAN CORPUSCULAR HGB CONC 32 g/dL (31-37); MEAN CORPUSCULAR VOLUME 92 fL (79-100); MONO # 0.7 x10^3/uL (0.0-1.1); MONO % 7 % (0-9); NEUT # 8.5 x10^3uL (1.8-7.7); NEUT % 83 % (31-73); PLATELET COUNT 255 x10^3/uL (140-400); RED BLOOD COUNT 2.49 x10^6/uL (4.30-5.70); RED CELL DISTRIBUTION WIDTH 15.4 % (11.5-14.5); WHITE BLOOD COUNT 10.2 x10^3/uL (4.0-11.0)
--- NOTE | 2019-11-17 06:30 | NUR ---
Pt has voided in urinal 3x this shift. Small amount of output each time, but urine is clear and yellow. Pt has continuous fluids infusing. Pt slept well through much of the night, no c/o.
[2019-11-17] MEDS ORDERED: DOCUSATE SODIUM 100 MG CAPSULE PO SCH (09:00)
[2019-11-17] MEDS ORDERED: predniSONE 10 MG TABLET PO SCH (09:00)
[2019-11-17] MEDS ORDERED: ASPIRIN ENTERIC COATED 325 MG TABLET.DR. PO SCH (09:00)
[2019-11-17] MEDS ORDERED: ATORVASTATIN CALCIUM 10 MG TABLET. PO SCH (09:00)
[2019-11-17] MEDS ORDERED: CETIRIZINE HCL 10 MG TABLET PO SCH (09:00)
[2019-11-17 09:47] LABS: ALBUMIN 2.5 g/dL (3.4-5.0); ALBUMIN/GLOBULIN RATIO 0.8 (1.0-1.7); C REACTIVE PROTEIN 11.1 mg/L (0-3.3); CALCIUM 10.1 mg/dL (8.5-10.1); CREATININE 6.1 mg/dL (0.7-1.3); GFR 9.1; POTASSIUM 3.8 mmol/L (3.5-5.1); TOTAL BILIRUBIN 0.3 mg/dL (0.2-1.0); TOTAL PROTEIN 5.6 g/dL (6.4-8.2)
[2019-11-17 10:35] LABS: FECAL OB PT POSITIVE (NEG)
[2019-11-17 11:05] VITALS: BP 105/54
--- NOTE | 2019-11-17 13:04 | HP ---
ADMIT DATE: 11/16/2019 HISTORY OF PRESENT ILLNESS: A 74-year-old male admitted as an outpatient for just general weakness and fatigue. The patient came in some days ago. Outpatient labs were performed and showed an elevated creatinine of 5.3 and a BUN of 118 with a GFR of 10. The patient had also noted that he was taking 2 different anti-inflammatory meds on the same day for the last couple of weeks. His last BUN and creatinine taken in the office, which was on October 27, showed a normal creatinine of 0.9 and a GFR of 80, I believe. In any case, acute renal failure. The patient said he was still urinating. He just felt fairly weak and so he was admitted for hydration and further evaluation. 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 He has also had stem cell injection in the left knee area and hyperlipidemia. History of osteomyelitis, joint replacement, tobacco abuse. He still smokes 3/4 pack a day. He has been on chronic oxygen 2.5 liters, history of coronary artery disease as noted and CHF. ALLERGIES: PENICILLIN. SURGICAL HISTORY: Left hip replacement, 12/2009, and repair of that left lower tibia fracture. The patient has had also hospitalizations for pneumonia and exacerbation of chronic obstructive pulmonary disease. FAMILY HISTORY: Nonremarkable. Mother had hepatitis B. Father of heart failure and COPD. SOCIAL HISTORY: As noted, has about a [id number] history of smoking, still continues to smoke despite a consultation about stopping. Denies hard drug use. Occasional alcohol use. He is a full code. MEDICATIONS: At home include diphenhydramine, Ancef 1 gram q. 8, DuoNeb treatments, Proventil inhaler p.r.n., cyclobenzaprine, pravastatin 40, diltiazem 300, lisinopril 20, aspirin 325, Advair 250/50 one b.i.d. and prednisone 10 mg daily. REVIEW OF SYSTEMS: The patient denies any headaches, visual changes, blurred vision, double vision. Does have some mild shortness of breath, but that is not uncommon for him nothing more than usual. Denies chest pain, has some mild epigastric pain. No nausea or vomiting. No melena, hematochezia, hematemesis. Claims he has no problems urinating.: Neurologically, he is baseline. He is alert and oriented. His speech is spontaneous and the like. PHYSICAL EXAMINATION: GENERAL: This is a pleasant white male in actually no apparent distress, looks fairly weak and frail. VITAL SIGNS: Blood pressure 105/50, respiratory rate 24, pulse 80, afebrile throughout. Oxygenation at 99% on 2 liters. HEENT: The patient otherwise, head was atraumatic. His eyes were PERRLA. Mouth, poor dentition, teeth missing. NECK: Supple, without JVD, carotid bruits. No thyromegaly. LUNGS: Diminished throughout, particularly in the left lower lobe, but otherwise unremarkable. CARDIOVASCULAR: Regular sinus rhythm, S1, S2. ABDOMEN: Soft. Definite tenderness in the epigastric area, but no rebounding, no guarding. Positive bowel sounds. Stool hemoccult positive. EXTREMITIES: No clubbing, cyanosis or edema. The left lower tibial area proximal shows an open wound, which is packed, approximately 1.5 cm deep. There are also multiple other little holes in a rectangular areas as were the screws are in that bone area. Pulses were noted distally. NEUROLOGIC: As noted, alert and oriented. Speech is fluent, spontaneous, appropriate and the like. IMAGING STUDIES: Chest x-ray was unremarkable. LABORATORY DATA: Other labs at the time of admission noted his hemoglobin to be in the 8 range, with hydration came down to 7.4 and 22, platelets 255. BUN and creatinine 118/5.3 on admission, went up to 123/6.1. The patient otherwise is stable. IMPRESSION: Acute renal failure; dehydration; anemia; hematuria; melena; chronic obstructive pulmonary disease, oxygen dependent; chronic multilobar emphysema. PLAN: Patient otherwise was admitted to ICU. Given boluses of normal saline, did not show any improvement, will be transferred down to [facility] for further evaluation, probable temporary dialysis and make further assessment at that institution. FRANCISCO FIELDS MD DR: MADYSON/leno JOB#: [id number] / [id number]
--- NOTE | 2019-11-17 14:45 | NUR ---
AFTER ASSESSING PATIENT AND REVIEWING HIS LABS A DECISION WAS MADE TO TRANSFER THE PATIENT TO [facility] FOR A HIGHER LEVEL OF CARE. PATIENT AGREED TO THE TRANSFER THEREFORE ARRANGEMENTS WERE MADE FOR THE TRANSFER. REPORT WAS CALLED TO SKYE [facility]N AT [facility]. PATIENT WILL BE IN ROOM 202 AT [facility]. EMS WAS CALLED AND PATIENT LEFT THE UNIT VIA GURNEY ESCORTED BY EMS PERSONNEL.
--- NOTE | 2019-11-17 16:55 | RAD ---
EXAM: CT Abdomen and Pelvis without IV contrast INDICATION: Reason: ABDOMINAL PAIN / Spl. Instructions: / History: TECHNIQUE: Multi-detector row CT images were acquired from the lung bases through the abdomen and pelvis without the use of IV contrast. Sagittal and coronal images were acquired from the transaxial data. All CT scans performed at this facility utilize dose optimization techniques as appropriate to the exam, including the following: Automated exposure control and adjustment of the mA and/or KV according to patient size (this includes techniques or standardized protocols for targeted exams where dose is indication/reason for exam). ORAL CONTRAST: None COMPARISON: None FINDINGS: The absence of IV contrast limits evaluation of soft tissue pathology. LOWER CHEST: Mild bronchiectasis and peripheral honeycombing and lower lobe predominant atelectasis is present. Multivessel coronary calcifications. Normal size heart. Bilateral gynecomastia. LIVER: Unremarkable BILIARY SYSTEM: Layering gallstones in the gallbladder which is otherwise unremarkable. Bile ducts are not dilated. PANCREAS: Unremarkable SPLEEN: Unremarkable ADRENALS: Unremarkable KIDNEYS & URETERS: Bilateral perinephric soft tissue stranding is present along with partially exophytic low-density lesion in the inferior pole right kidney measuring 5 cm that is statistically likely to be a cyst. A second, 2 cm lesion in the medial aspect of the inferior right kidney likely represents a cyst as well. These require no additional imaging follow-up. Nonobstructing punctate stones in the inferior pole right kidney also noted. BLADDER: Partially distended. Unremarkable. REPRODUCTIVE ORGANS: Unremarkable GASTROINTESTINAL: The stomach, small bowel, and colon show formed stool throughout the large bowel and scattered coronary diverticuli without findings of acute diverticulitis but otherwise they are unremarkable. The appendix is not well seen with no findings of acute appendicitis. MESENTERY/PERITONEUM/RETROPERITONEUM: Unremarkable VASCULAR: IVC filter is present, with at least one prong protruding into the lumen of the abdominal aorta (images 54 through 66 of series 2 this exam). Extensive arterial calcifications without aneurysmal dilation of the abdominal aorta. LYMPH NODES: No adenopathy OSSEOUS & SOFT TISSUES: Generalized osteopenia and old posterior right rib fractures with fibrous nonunion and chronic appearing compression fracture at L2 are noted along with extensive facet degenerative changes in the lumbar spine. No acute fracture or aggressive appearing osseous lesions. Left dynamic hip screw fixation. IMPRESSION: 1. Bilateral perinephric soft tissue stranding is nonspecific. Most of the time this reflects chronic kidney disease but pyelonephritis can appear similar. Correlate clinically. There is no hydronephrosis. 2. Cholelithiasis. If cholecystitis is suspected, further imaging by gallbladder ultrasound could be pursued. 3. Moderate stool throughout the bowel. Correlate for constipation. 4. IVC filter with a prong penetrating the abdominal aorta. No findings of aortic leak or active intra-abdominal hemorrhage. Detail is limited by lack of IV contrast. Electronically signed by: Jessica Tillman MD (11/17/2019 4:52 PM) [id number]
== END 2019-11-17 12:15 | disposition short-term general hospital (02) | DRG 682 ==
LOC: ICU 14:37
PROVIDERS: ADMIT Family Medicine; ATTEND Family Medicine
DX: N17.9 Acute kidney failure, unspecified (principal); E43 Unspecified severe protein-calorie malnutrition; K92.1 Melena; E86.0 Dehydration; D64.9 Anemia, unspecified; E78.5 Hyperlipidemia, unspecified; I11.0 Hypertensive heart disease with heart failure; I25.10 Atherosclerotic heart disease of native coronary artery without angina pectoris; I50.9 Heart failure, unspecified; Z96.642 Presence of left artificial hip joint; J43.9 Emphysema, unspecified; R31.9 Hematuria, unspecified; M85.80 Other specified disorders of bone density and structure, unspecified site; Z82.49 Family history of ischemic heart disease and other diseases of the circulatory system; Z82.5 Family history of asthma and other chronic lower respiratory diseases; Z87.891 Personal history of nicotine dependence; Z99.81 Dependence on supplemental oxygen; Z88.0 Allergy status to penicillin; Z68.25 Body mass index [BMI] 25.0-25.9, adult
CPT/HCPCS: 36415; 74176; 80053; 81001; 82274; 83540; 83550; 84443; 85025; 86140; 94640; J0690; J7512; J7030

== ENCOUNTER → 2019-11-16 | Outpatient (CLI) | payer MEDICARE ==
[~2019-11-16] MED LIST changes: +ALBU2.5V8 INH; +CEFA1VIA2 IJ; +DIPH25TA26 PO; +DOCU100C28 PO; +IBUP-571 PO; +LACT1CAP19 PO; +MELA3TAB4 PO
[2019-11-16 12:10] VITALS: BP 106/66
[2019-11-16 13:21] LABS: BASO # 0.1 x10^3/uL (0.0-0.2); BASO % 1 % (0-3); EOS # 0.1 x10^3/uL (0.0-0.7); EOS % 1 % (0-3); HEMATOCRIT 24.8 % (39.0-53.0); HEMOGLOBIN 8.2 g/dL (13.0-17.5); LYMPH # 0.6 x10^3/uL (1.0-4.8); LYMPH % 7 % (24-48); MEAN CORPUSCULAR HEMOGLOBIN 30 pg (25-35); MEAN CORPUSCULAR HGB CONC 33 g/dL (31-37); MEAN CORPUSCULAR VOLUME 92 fL (79-100); MONO # 0.5 x10^3/uL (0.0-1.1); MONO % 6 % (0-9); NEUT # 7.1 x10^3uL (1.8-7.7); NEUT % 85 % (31-73); PLATELET COUNT 280 x10^3/uL (140-400); RED CELL DISTRIBUTION WIDTH 14.9 % (11.5-14.5); WHITE BLOOD COUNT 8.3 x10^3/uL (4.0-11.0)
[2019-11-16 13:26] LABS: CALCIUM 9.9 mg/dL (8.5-10.1); CREATININE 4.9 mg/dL (0.7-1.3); GFR 11.7; POTASSIUM 4.3 mmol/L (3.5-5.1)
--- NOTE | 2019-11-16 15:19 | RAD ---
EXAM: CHEST PA LATERAL INDICATION: Reason: SOB / Spl. Instructions: / History: . TECHNIQUE: Single view COMPARISON: None FINDINGS: Interval placement of a right PICC line. Tip terminates in the mid SVC. The heart size is normal. Great vessels show aortic tortuosity similar to prior. There is no hilar or mediastinal mass. Lungs are hyperlucent in a pattern suggesting underlying COPD with pleural parenchymal scarring present in the lingula. No new superimposed airspace opacity. The right lateral costophrenic margin is partly excluded. There is no pleural effusion or pneumothorax. Degenerative changes in the right glenohumeral joint are present. IMPRESSION: COPD with no acute superimposed cardiopulmonary process Electronically signed by: Jessica Tillman MD (11/16/2019 3:16 PM) [id number]
== END | disposition home or self-care (01) ==
LOC: DXRAD 12:34
PROVIDERS: ATTEND Family Medicine
DX: J44.9 Chronic obstructive pulmonary disease, unspecified (principal); Q25.46 Tortuous aortic arch; M19.011 Primary osteoarthritis, right shoulder
CPT/HCPCS: 36415; 71046; 80048; 85025